=== PATIENT | male | born 1950 | race Caucasian/White ===

== ENCOUNTER 2019-08-09 17:45 | Inpatient (IN) | payer MEDICARE ==
[~2019-08-09] VITALS: Ht 182.8 cm; Wt 86.2 kg
[2019-08-09 19:05] VITALS: BP 111/75
[2019-08-09] MEDS ORDERED: NATURE'S BLEND100 M2 PO (19:28)
[2019-08-09] MEDS ORDERED: TRAZODONE50 MG PO (19:29)
[2019-08-09] MEDS ORDERED: ZYPREXA20 M1 PO (19:30)
[2019-08-09] MEDS ORDERED: EXELON1 EACH T (19:30)
[2019-08-09] MEDS ORDERED: HALOPERIDOL0.5 MG PO (19:31)
[2019-08-09] MEDS ORDERED: NEURONTIN300 MG PO (19:32)
[2019-08-09] MEDS ORDERED: NATURE'S BLEND F1 MG PO (19:32)
[2019-08-09] MEDS ORDERED: LIPITOR10 MG PO (19:32)
[2019-08-09] MEDS ORDERED: PRINIVIL10 MG PO (19:33)
[2019-08-09] MEDS ORDERED: GLUCOPHAGE1000 MG PO (19:34)
[2019-08-09] MEDS ORDERED: PAXIL20 M1 PO (19:35)
[2019-08-09 20:00] VITALS: BP 111/75
--- NOTE | 2019-08-09 20:18 | NUR ---
DR GODOY NOTIFIED OF ADMISSION
[2019-08-09 20:32] VITALS: BP 111/75
--- NOTE | 2019-08-09 20:55 | NUR ---
EVENING/COLOR THERAPY/LEISURE PT JUST ADMITTED TO UNIT AND IS BECOMING ORIENTED AT THIS TIME. ACTIVITY ASSESSMENT WILL BE ATTEMPTED TOMORROW.
--- NOTE | 2019-08-09 21:39 | NUR ---
ON UNIT TO SEE PATIENT AT THIS TIME.
--- NOTE | 2019-08-09 22:31 | NUR ---
PATIENT ALERT AND ORIENTED TO PERSON AND PLACE, CONFUSED. ST/LT MEMORY DEFICITS NOTED. PT STATED THAT HE IS HERE TO SEE A COMPLETIONS MANAGER TO GET A "HEART WORKUP" DESPITE REORIENTATION FROM THIS NURSE. PT POOR HISTORIAN. PT ATTEMPTS TO HIDE CONFUSION WITH SARCASTIC REMARKS OR JOKES. UNDERLYING IRRITABILITY NOTED DURING TIMES OF REALITY PRESENTATION. PT OTHERWISE CALM, COOPERATIVE, AND INTERACTIVE. NO COMPLAINTS OF SI/HI, HALLUCINATIONS, OR PAIN. NO NOTED RESPONDING TO INTERNAL STIMULI. PT DENIES WOUNDS, REFUSES SKIN ASSESSMENT OF GROIN AND BUTTOCKS. NO EXIT SEEKING BEHAVIORS OBSERVED, ELOPEMENT PRECAUTIONS CONTINUED AND MAINTAINED. PT AMBULATORY WITH STEADY GAIT, CONTINENT OF BOWEL AND BLADDER. PT INDEPENDENT WITH ADL'S WITH MINIMAL ASSISTANCE. PT CURRENTLY LAYING DOWN WITH EYES CLOSED. RESPIRATIONS EASY AND REGULAR, NO SIGNS OR SYMPTOMS OF DISTRESS NOTED. PLAN IS TO CONTINUE TO MONITOR MOOD AND BEHAVIORS. PROVIDE 1:1 WITH SUPPORT NEEDED. ENCOURAGE MEDICATION COMPLIANCE AND EDUCATE. MAINTAIN Q 15 MIN CHECKS AND ELOPEMENT PRECAUTIONS.
--- NOTE | 2019-08-10 06:01 | NUR ---
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 NO SIGNS OR SYMPTOMS OF DISTRESS NOTED.
[2019-08-10 07:17] LABS: BASO % 0.4 % (0.0-1.0); EOS # 0.2 10*3/uL (0.0-0.4); EOS % 2.9 % (1.0-4.0); HEMATOCRIT 39.3 % (42.0-52.0); HEMOGLOBIN 13.8 g/dl (14.0-18.0); LYMPH # 1.1 10*3/uL (1.3-4.4); MEAN CELL VOLUME 96.3 fl (80.0-94.0); MEAN CORPUSCULAR HGB 33.8 pg (27.0-31.0); MEAN CORPUSCULAR HGB CONC 35.1 g/dl (33.0-37.0); MEAN PLATELET VOLUME 10.4 fl (9.6-12.3); MONO # 0.5 10*3/uL (0.1-1.0); MONO % 8.5 % (3.0-9.0); NEUT # 3.7 10*3/uL (2.3-7.9); NEUT % 67.8 % (47.0-73.0); PLATELET COUNT AUTOMATED 117 10*3/uL (130-400); RED BLOOD COUNT 4.08 10*6/uL (4.50-5.90); RED CELL DISTRI WIDTH 11.9 % (0-14.5); WHITE BLOOD COUNT 5.5 10*3/uL (4.8-10.8)
[2019-08-10 07:26] LABS: ALBUMIN 3.7 gm/dl (3.1-4.5); ALKALINE PHOSPHATASE 59 U/L (45-117); BUN 11 mg/dl (7-24); CHLORIDE 101 mmol/L (98-107); CHOLESTEROL 186 mg/dL (<200); CREATININE 0.82 mg/dL (0.70-1.30); HDL CHOLESTEROL 32 mg/dl (40-60); LDL CHOLESTEROL 110 mg/dL (9-159); POTASSIUM 4.1 mmol/L (3.5-5.1); SGOT/AST 14 IU/L (3-35); SGPT/ALT 16 U/L (12-78); SODIUM 136 mmol/L (136-145); TOTAL PROTEIN 6.9 gm/dL (6.4-8.2); TRIGLYCERIDES 219 mg/dl (<150); VLDL CHOLESTEROL 44 mg/dL (6-40)
[2019-08-10 07:36] VITALS: BP 131/85
--- NOTE | 2019-08-10 07:49 | NUR ---
Patient resting quietly with no c/o discomfort. Respirations easy and regular. Vital signs stable. No overt distress. GIVENS,NADIA
--- NOTE | 2019-08-10 08:00 | NUR ---
DR. BROWN ON UNIT TO ASSESS PATIENT.
[2019-08-10 08:10] LABS: VITAMIN D, 25-HYDROXY 17.4 ng/mL (30-100)
--- NOTE | 2019-08-10 09:04 | NUR ---
DR. ESQUEDA NOTIFIED OF PATIENT'S AIC OF 9.6.
--- NOTE | 2019-08-10 11:28 | NUR ---
DR ESQUEDA UPDATED ON PT BLOOD SUGAR OF 406. NO NEW ORDERS AT THIS TIME.
--- NOTE | 2019-08-10 11:51 | NUR ---
AM GROUP PT ATTENDED MORNING GROUP THERAPY BUT REFUSES ANY ACTIVITY OFFERED. PT GOT UP AND LEFT THE ROOM SEVERAL TIMES. PT DID LOOK AT THE NEWSPAPER FOR A FEW MINUTES. PT EXHIBITED NO ELOPEMENT BEHAVIORS WHILE IN GROUP
--- NOTE | 2019-08-10 12:24 | NUR ---
PT AT THE NURSES STATION. CONFUSED AT THIS TIME. ARGUMENTATIVE WITH REDIRECTION AND REORIENTATION. REASSURED PT HE WAS SAFE AND HIS DAUGHTER KNOWS WHERE HE IS. EXPLAINED TO THE PT THIS NURSE SPOKE TO HIS DAUGHTER TODAY. PT BECOMING AGITATED.
--- NOTE | 2019-08-10 12:48 | NUR ---
PT COMING TO THE NURSES STATION REQUESTING HIS CAR KEYS SO HE CAN LEAVE. ATTEMPTING TO REORIENT PT AND PT SHOWING SIGNS OF INCREASED AGITATION AND IRRITABILITY. PROVIDING 1:1 FOR THERAPEUTIC COMMUNICATION. ENCOURAGING PT TO ATTEND GROUP. ALL REDIRECTION INEFFECTIVE AT THIS TIME.
--- NOTE | 2019-08-10 12:58 | NUR ---
P: INCREASED CONFUSION, IRRATIBLE, ANGRY, ARGUEMENTATIVE TOWARDS STAFF, EXIT SEEKING, VOICED DELUSIONAL THOUGHTS. TELLING STAFF "I WANT TO LEAVE, I'M NOT IN HOSPITAL, I CAME TO SALVAGE MY CAR, WHERE IS MY CAR AND KEYS, I'M LEAVING" ASKING STAFF FOR DIRECTIONS TO ESCULATOR OR STAIRS, TO LEAVE HOSPITAL. "ARE YOU FROM [place] "CAN YOU CALL MY /" PATIENT IS A . I: ONE ON ONE FOR EMOTIONAL SUPPORT, REORIENTION AND REDIRECTION R: INEFFECTIVE; PATIENT CONITNUES TO COME UP AT THE NURSE STATION REPETATIVE ON LEAVING THE HOSPITAL AND HOW TO GET OUT OF THE BUILDING. PATIENT INCREASINGLY BECOMING MORE AGITATED. PRN ATIVAN 1MG PO AT THIS TIME. PATIENT IS ALERT TO PERSON WITH CONFUSION; LONG/SHORT TERM MEMORY DIFICITS. ABLE TO VOICE NEEDS. MOOD IS IRRITABLE, ANGRY, DEMENDING, ARGUEMENTATIVE. DENIES ANY HALLUCINATIONS, DELUSIONS, HI/SI OR PAIN. 1 PERSON ASSIST WITH VERBAL CUEING WITH ACTIVITIES OF DAILY LIVING, CONTINENT OF BOWEL AND BLADDER. SET UP FOR MEALS, INTAKES ARE FAIR WITH ADEQUATE FLUIDS. MEDICAITON COMPLAINT WITH EDUCATION PROVIDED. Q 15 MINUTE SAFETY CHECKS. PATIENT IS A HIGH ELOPEMENT RISK. P: CONTINUE TO MONITOR PATIENT'S MOOD, EXIT SEEKING AND AGGRESSION. PROVIDE ONE ON ONE FOR EMOTIONAL SUPPORT, REDIRECTION AND ORIENTATION NEEDED.
--- NOTE | 2019-08-10 12:58 | NUR ---
PRN ATIVAN INEFFECTIVE. CONTINUE TO PROVIDE ONE ON ONE, REDIRECTION AND ORIENTATION NEED AND MONITOR MOOD.
--- NOTE | 2019-08-10 13:51 | NUR ---
Spoke with Mattie mann Nurse from [facility] [place]. Pt. will return to facility at discharge. Provided with updates and faxed clinical updates to [phone].
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
--- NOTE | 2019-08-10 15:17 | NUR ---
Patient was restless this afternoon wanting his car keys and demanding to leave. Pt stated that he has two vehicles that are impounded and that he needs to handle the situation. Pt is questioning why he needs to be at the hospital and why he can't leave. Pt is also stating that he did not consent to being admitted to the hospital. Reality and validation methods were used by staff and were ineffective. Pt did finally state that he would wait for the doctor and went to sit in the activity room.
--- NOTE | 2019-08-10 15:44 | NUR ---
PM GROUP PT WAS IN AND OUT OF THE GROUP ROOM AND WAS BECOMING AGITATED AND RESTLESS. PT WAS NOT TOLERATING AN ELDERLY PEER AND LEFT THE ROOM TO ASK HOW TO GET OUT OF THE UNIT OR TO THE GROUND FLOOR. PT COULD NOT BE REDIRECTED AND WENT INTO THE [facility] TO ASK THE NURSES.
--- NOTE | 2019-08-10 16:10 | NUR ---
Shift chart check completed.
--- NOTE | 2019-08-10 16:27 | NUR ---
PATIENT CONTINUES TO ESCULATE; CONFRONTATION WITH STAFF, GOING TO DOORS ATTEMPTING TO OPEN DOORS. FOLLOWING STAFF ON UNIT. ASKING :HOW TO BUST OF OUT HERE?" INCREASED PACING. PRN VISTARIL 50 MG PO GIVEN AT THIS TIME.
--- NOTE | 2019-08-10 17:27 | NUR ---
PRN VISTARIL INEFFECTIVE; PATIENT CONTINUE TO COME UP AT NURSE STATION WITH REPEATIVE CONCERNS WITH WANTING TO LEAVE, GOING DOWN HALLWAY CHECKS DOORS. PATIENT REDIRECTED FREQUENTLY. SECURITY CALLED FOR CHECK UNIT MORE DURING VISITING HOURS DUE TO HIGH ELOPEMENT RISK.
--- NOTE | 2019-08-10 18:57 | NUR ---
attempted to present reality to pt. pt stated fine he would then go on a hunger strike. pt continues to ask to be left out and attempting to push on all doors. will continue to monitor behaviors with q15 minute safety checks
[2019-08-10 20:03] VITALS: BP 148/84
--- NOTE | 2019-08-10 20:30 | NUR ---
P-CONFUSED, IRRITABLE, ARGUMENTATIVE WITH STAFF, EXIT SEEKING. I-REORIENTED TO REALITY WITH REDIRECTION. PROVIDED 1:1 WITH SUPPORT. PROVIDED DIVERSION TECHNIQUES. PROVIDED LOW STIMULI ENVIRONMENT TO HELP CALM. ENCOURAGED MEDICATION COMPLIANCE. R- NON-PHARMACOLOGICAL INTERVENTIONS INEFFECTIVE. INCREASING IRRITABILITY NOTED DURING TIMES OF REDIRECTION. PT STATES "IM LEAVING HERE, GIVE ME MY CAR KEYS AND STUFF NOW. PT FOLLOWING STAFF, INTRUSIVE. PT CONTINUES TO EXIT SEEK, PACING HALLWAY. PT RECEIVED PRN GEODON 10MG IM AT 2021 ORDERED BY PHYSICIAN. PT TOLERATED INJECTION WELL. P-CONTINUE TO MONITOR FOR ESCALATING BEHAVIORS. PROVIDE 1:1 WITH SUPPORT. PROVIDE REORIENTATION. REDIRECT APPROPRIATE. ENCOURAGE MEDICATION COMPLIANCE. MAINTAIN Q 15 MIN CHECKS.
--- NOTE | 2019-08-10 22:00 | NUR ---
PT IN ROOM AND BED RESTING QUIETLY AT THIS TIME. NO AGITATION OR AGGRESSION NOTED. PRN GEODON GIVEN AT 2021 EFFECTIVE AT THIS TIME.
--- NOTE | 2019-08-11 06:39 | NUR ---
PATIENT OBSERVED ON Q 15 MIN CHECKS TO HAVE SLEPT APPROX 7 HOURS UNINTERRUPTED. PT CONTINUES TO REFUSE SKIN ASSESSMENT THIS SHIFT. NO SIGNS OR SYMPTOMS OF DISTRESS NOTED.
[2019-08-11 07:17] VITALS: BP 110/72
--- NOTE | 2019-08-11 08:15 | NUR ---
Treatment Plan meeting was held with Dr. Cruz, RN, AT, GUT CLEANER-S and Lifter Driver in attendance. Plan for discharge next week. Pt. will return to [facility] at discharge.
--- NOTE | 2019-08-11 09:13 | NUR ---
DR BROWN ON UNIT TO ASSESS PT. UPDATE PROVIDED TO
--- NOTE | 2019-08-11 11:45 | NUR ---
AM GROUP/CIELO VUONG PT DID NOT ATTEND MORNING GROUP THERAPY. PT WENT BACK TO BED AFTER BREAKFAST AND WAS SLEEPING DURING GROUP
--- NOTE | 2019-08-11 12:08 | NUR ---
P: CONFUSION. ALERT TO PERSON ONLY. INCREASED IRRITABILITY WITH CONFUSION. I: REORIENT PT NEEDED. PROVIDED 1:1 FOR THERAPEUTIC COMMUNICATION. MONITORED BEHAVIORS WITH Q15 MINUTE SAFETY CHECKS. ENCOURAGED MEDICATION COMPLAINCE. OFFERED NONPHARMACOLOGICAL INTERVENTIONS, SUCH [employer] NEWSPAPER. R:MEDICATION COMPLIANT. PT READ [employer] NEWSPAPER. NO ADVERSE MOODS OR BE HAVIORS NOTED. PT RECEPTIVE TO REDIRECTION AND REORIENTATION. REORIENTATION INEFFECTIVE. P:CONTINUE TO OFFER 1:1 FOR THERAPEUTIC COMMUNICATION. MONITOR BEHAVIORS WITH Q15 MINUTE SAFETY CHECKS. CONTINUE TO OFFER NONPHARMACOLOGICAL INTERVENTIONS FOR REDIRECTION. CONTINUE TO ENCOURAGE MEDICATION COMPLIANCE AND ENCOURAGE ATTENDENCE AND PARTICIPATION IN GROUPS.
--- NOTE | 2019-08-11 13:30 | NUR ---
Occupational therapy orders received and OT evaluation completed in full on floor three. Patient demonstrated independent ADLs, functional mobility, and transfers with good strength, balance, and safety. Patient to be discharged from occupational therapy at this time. [place], [id number]. Thank you for the referral. Carlita Roy, OTR/L
--- NOTE | 2019-08-11 14:06 | NUR ---
UPDATED DR BARRERA ON PHARMACY NOT HAVING GLIPIZIDE IN AND NO AVAILABILITY UNTIL FRIDAY. DR BARRERA STATED HE WOULD LOOK INTO IT.
--- NOTE | 2019-08-11 14:19 | NUR ---
PHYSICAL THERAPY Alley completed low level of [id number]. Pt is independent in transfers and ambulation without any AD, steady gait no gross balance issues. Staff reports no issues or problems with function at this time, no skilled need at this time for Physical Therapy if status changes please reconsult, thank you. Susan Plaza PT
--- NOTE | 2019-08-11 15:39 | NUR ---
Clinical Updates faxed to [facility].
--- NOTE | 2019-08-11 15:51 | NUR ---
PM GROUP/BALL TOSS AND MOVIE PT DID NOT ATTEND AFTERNOON GROUP THERAPY. PT SAT IN QUIET ROOM AND LOOKED AT BOOKS AND MAGAZINES.
--- NOTE | 2019-08-11 17:24 | NUR ---
DR BARRERA UPDATED ABOUT PATIENT BLOOD SUGAR RESULTS. NO NEW ORDERS AT THIS TIME. DOCTORS TO REVIEW MEDICATIONS AND BLOOD SUGAR RESULTS IN THE AM
[2019-08-11 19:11] VITALS: BP 117/73
--- NOTE | 2019-08-11 21:45 | NUR ---
P-CONFUSION, IRRITABLITY I-REDIRECTION WITH 1: THERAPEUTIC INTERVENTIONS AND PRESENT REALITY. EDUCATE AND ENCOURAGE MEDICATION COMPLIANCE R-PATIENT MEDICATION COMPLIANT. PATIENT IRRITABLE WITH MULTIPLE ATTEMPTS TO EXIT SEEK. PATIENT STATING TO THIS NURSE, I JUST CAN' T GET SETTLED. PATIENT MEDICATED WITH VISTARIL WITH EFFECTIVE RESULTS AT THIS TIME. PATIENT PROVIDED NOURISHMENT AND FLUIDS AT HS. PATIENT AMBULATING ON UNIT WITHOUT ASSISTIVE DEVICE AND STEADY GAIT. PATIENT INTERACTING WITH PEERS IN DINING AREA THROUGHOUT THE SHIFT. P-CONTINUE TO ENCOURAGE MEDICATION COMPLIANCE, CONTINUE TO PRESENT REALITY, ENCOURAGE GROUP THERAPY WHILE AWAKE
--- NOTE | 2019-08-11 22:15 | NUR ---
URINE SPECIMEN COLLECTED VIA CLEAN CATCH. URINE DARK YELLOW WITH STRONG ODOR. URINE OUTPUT OF 350ML. PATIENT CONTINENT OF BLADDER PRIOR TO COLLECTING SPECIMEN. PATIENT WITH NO COMPLAINTS OF DYSURIA
[2019-08-11 22:29] LABS: BILIRUBIN NEGATIVE (NEGATIVE); BLOOD NEGATIVE (NEGATIVE); CLARITY CLEAR (CLEAR); COLOR YELLOW (YELLOW); GLUCOSE 3+ (NEGATIVE); KETONE 1+ (NEGATIVE); LEUKO ESTERASE NEGATIVE (NEGATIVE); NITRITE NEGATIVE (NEGATIVE)
[2019-08-11 22:38] LABS: EPITHELIAL CELLS 0-2; WBC 0-2 wbc/hpf (0-5)
--- NOTE | 2019-08-12 06:11 | NUR ---
PATIENT SLEPT 7 HOURS OF INTERRUPTED SLEEP THROUGHOUT SHIFT. Q 15 MINUTE CHECKS MAINTAINED. 24 HR chart check completed.
[2019-08-12 07:26] VITALS: BP 124/72
--- NOTE | 2019-08-12 08:00 | NUR ---
Patient resting quietly with no c/o discomfort. Respirations easy and regular. Vital signs stable. No overt distress. JENNIFER CARRASQUILLO
--- NOTE | 2019-08-12 11:40 | NUR ---
AM GROUP PT WAS IN AND OUT OF GROUP. PT SAT AND WATCHED THE PARADE FOR A LITTLE WHILE, LEFT AND BROUGHT A NATIONAL GEOGRAPHIC BACK IN WITH HIM. PT WAS QUIET AND SAT AT THE BACK OF THE ROOM. PT EXHIBITED NO AGITATION WHILE IN THE DAYROOM
--- NOTE | 2019-08-12 14:40 | NUR ---
PM GROUP/FOOTBALL PT WAS PRESENT FOR AFTERNOON GROUP THERAPY AND WAS WATCHING FOOTBALL. PT WOULD GET UP OCCATIONALLY AND ASKED, "CAN I PUT MY JEANS ON IF I CAN FIND THEM IN MY ROOM"? AND PT STATED, "I DIDN'T HAVE ANY LUNCH" WHEN [facility] REPORTED THAT HE HAD EATEN ALL OF HIS LUNCH. PT DID NOT ATTEMPT TO EXIT SEEK OR EXHIBIT ANY AGITATION WHILE IN GROUP
--- NOTE | 2019-08-12 15:09 | NUR ---
PT CONFUSED, WANDERING HALLS, EASILY DISTRACTIBLE. PT REDIRECTED TO TASK AND REORIENTED. PT STATES "I MEAN, IT'S NOT A BAD THING TO FORGET. WHO CARES?". PT IS RECEPTIVE TO REORIENTATION AND REDIRECTION, HOWEVER, ONLY LASTS A SMALL AMOUNT OF TIME AND PT REQUIRES FURTHER REORIENTATION. WILL CONTINUE TO REORIENT AND PROVIDE EMOTIONAL SUPPORT APPROPRIATE. WILL ENCOURAGE MEDICATION COMPLIANCE. Q15 MIN MONITORING PER POLICY.
--- NOTE | 2019-08-12 17:46 | NUR ---
PT BEGINNING TO BECOME INCREASINGLY RESTLESS AND AGITATED. STATES THAT HE IS CALLING [employer] AND LEAVING TOMORROW. PT STATES HE IS LEAVING NO MATTER WHAT, HE IS NOT A PATIENT HERE. PT PACING HALLS AND BECOMING MORE AGITATED. PT REDIRECTED, PROVIDED WITH MUCH 1:1 AND DECREASED STIMULATION. ALL NONPHARMACOLOGICAL INTERVENTIONS INEFFECTIVE AT THIS TIME. VISTARIL 50MG GIVEN PER PRN ORDER FOR INCREASED ANXIETY AND AGITATION.
[2019-08-12 20:00] VITALS: BP 145/69
--- NOTE | 2019-08-12 21:34 | NUR ---
P-CONFUSION, IRRITABLE, MEDICATION NONCOMPLIANCE I-REDIRECTION WITH 1: THERAPEUTIC INTERVENTIONS AND PRESENT REALITY. EDUCATE AND ENCOURAGE MEDICATION COMPLIANCE R-PATIENT REFUSED ALL MEDICATION AT HS. PATIENT IRRITABLE WITH NURSING STAFF WHEN FOUND IN ANOTHER PATIENTS BED. PATIENT REDIRECTED TO HIS ROOM BUT UPSET ABOUT GOING TO HIS ROOM. PATIENT PROVIDED NOURISHMENT AND FLUIDS AT HS. PATIENT AMBULATING ON UNIT WITHOUT ASSISTIVE DEVICE AND STEADY GAIT. P-CONTINUE TO ENCOURAGE MEDICATION COMPLIANCE, CONTINUE TO PRESENT REALITY, ENCOURAGE GROUP THERAPY WHILE AWAKE
--- NOTE | 2019-08-12 23:16 | NUR ---
REAPPROACHED PATIENT WITH HS MEDICATIONS. PATIENT RECEIVED MEDICATION BY OTHER NURSE ON UNIT. PATIENT ARGUMENTATIVE BUT DID COMPLY WITH MEDICATION ADMINISTRATION AND RECEIVED INSULIN AT THIS TIME
--- NOTE | 2019-08-13 06:12 | NUR ---
PATIENT SLEPT 6 HOURS OF INTERRUPTED SLEEP THROUGHOUT SHIFT. Q 15 MINUTE CHECKS MAINTAINED. 24 HR chart check completed.
[2019-08-13 07:57] VITALS: BP 135/66
--- NOTE | 2019-08-13 08:05 | NUR ---
Patient sitting quietly with no c/o discomfort. Respirations easy and regular. Vital signs stable. No overt distress. ANNE MALIK
--- NOTE | 2019-08-13 11:37 | NUR ---
AM GROUP/WATERCOLORS PT WAS PRESENT FOR MORNING GROUP THERAPY BUT DID NOT PARTICIPATE IN THE PAINTING. PT SAT AT THE BACK OF THE ROOM QUIETLY UNTIL A PEER BECAME COMBATIVE AND EXIT SEEKING. PT BECAME AGITATED AND ASK PEER TO BE QUIET. PT OCCATIONALLY WAS GETTING UP AND LOOKING FOR HIS SHOES BUT WAS EASILY REDIRECTED.
--- NOTE | 2019-08-13 15:42 | NUR ---
PM GROUP/LEISURE INTERESTS PT ATTENDED AFTERNOON GROUP THERAPY AND PARTICIPATED FOR A SHORT TIME BY PLAYING CHECKERS WITH A PEER. PT BEGAN TO AT 2PM AND WAS EXIT SEEKING AND GETTING MORE AND MORE AGITATED. PT COULD ONLY BE REDIRECTED BECAUSE HE HAD AN ANSWER FOR EVERYTHING AND THAT WOULD STALL HIM FOR A MINUTE OR TWO CORRECTING YOU. PT REPEATEDLY ASKED THIS HARVEST WORKER TO TAKE HIM DOWN TO THE FIRST FLOOR AND GET HIS CAR.
[2019-08-13 20:00] VITALS: BP 126/69
--- NOTE | 2019-08-13 21:49 | NUR ---
P-CONFUSION, IRRITABLE, ELOPEMENT RISK I-PROVIDE EMOTIONAL SUPPORT, ASSESS ORIENTATION, REORIENT & REDIRECT FREQUENTLY. ADMINISTER MEDS, MONITOR SLEEP, MAINTAIN ELOPEMENT PRECAUTIONS. R-PT INDEPENDENTLY AMBULATES, ALERT TO SELF ONLY. HAS BEEN REORIENTED TO PLACE SEVERAL TIMES BUT HAS NO RECALL. SHORT & LONG MEMORY DEFICITS VERY EVIDENT. CONFUSED & FREQUENTLY ASKS STAFF QUESTIONS & WHEN ANSWERED BECOMES IRRITABLE. WANDERS AROUND ON THE UNIT FREQUENTLY & WALKS TO UNIT DOOR. DID ASK WHY HE CANT LEAVE THE UNIT. STATED HE JUST CAME HERE AN HOUR AGO. ATE SNACK. HS BEDSIDE GLUCOSE 259. COMPLIANT WITH MEDICATIONS. P-CONTINUE TO MONITOR & PROVIDE PHYSICAL & EMOTIONAL SUPPORT NEEDED.
--- NOTE | 2019-08-14 00:05 | NUR ---
24 HR chart check completed.
--- NOTE | 2019-08-14 05:06 | NUR ---
PT HAS SLEPT QUIETLY PAST 2129
--- NOTE | 2019-08-14 06:50 | NUR ---
AM BEDSIDE GLUCOSE 230
[2019-08-14 07:46] VITALS: BP 116/71
--- NOTE | 2019-08-14 08:00 | NUR ---
Patient resting quietly with no c/o discomfort. Respirations easy and regular. Vital signs stable. No overt distress. JENNIFER CARRASQUILLO
--- NOTE | 2019-08-14 11:56 | NUR ---
AM GROUP/EXERCISES/BALL TOSS PT ATTENDED AND PARTICIPATED. PT PLEASANT AND ON TASK WITH NO LABILE MOOD EXPRESSED. PT DID NOT BECOME AGITATED OR AGGRESSIVE AT THIS TIME. PT WILL CONTINUE TO ATTEND AND PARTICIPATE IN FUTURE GROUP SESSIONS.
--- NOTE | 2019-08-14 12:32 | NUR ---
PT CONFUSED, WANDERING HALLS, DISTRACTIBLE. PT REDIRECTED TO TASK AND REORIENTED. PT IS RECEPTIVE TO REORIENTATION AND REDIRECTION, HOWEVER, ONLY LASTS A SMALL AMOUNT OF TIME AND PT REQUIRES FURTHER REORIENTATION. WILL CONTINUE TO REORIENT AND PROVIDE EMOTIONAL SUPPORT APPROPRIATE. WILL ENCOURAGE MEDICATION COMPLIANCE. Q15 MIN MONITORING PER POLICY.
--- NOTE | 2019-08-14 15:41 | NUR ---
PM GROUP/LEISURE SKILLS PT BEGAN GROUP BY FOCUSING ON FOOTBALL GAME, BUT SOON BEGAN SEARCHING FOR HIS SHOES AND CLOTHES. PT BECOMING FRUSTRATED DUE TO NOT FINDING CLOTHES BUT STAFF ARE CONSATTNLY REDIRECTING PT. PT UNABLE TO FOCUS ON ACTIVITY AT THIS TIME AND WILL CONTINUE TO BE ENOCURAGED TO ATTEND AND PARTICIPATE IN FUTURE GROUP SESSIONS.
--- NOTE | 2019-08-14 17:13 | NUR ---
PT ASKING TO CALL HIS SPOUSE () SEVERAL TIMES, PT BECOMES UPSET WHEN STAFF REDIRECTS HIM FROM THE PHONE CALL. PT IS CONCERNED THAT HE IS SUPPOSED TO BE LEAVING "THIS JOB SITE" AND WILL BE UPSET AT HIM FOR NOT COMING HOME. PT TOLD SEVERAL TIMES SHE IS AWARE HE IS HERE. OFFERED TO CALL HIS DAUGHTER JOSE ALBERTO, HE DOES NOT RECALL HER VISITING TODAY, HE ALSO DOES NOT RECALL THAT HIS HAS PASSED. AT THIS TIME ATTEMPTING TO REORIENT WOULD INCREASE AGITATION. PT CONTINUES TO PASS THE HALLWAY. ST/LT MEMORY IS IMPAIRED. CONTINUE TO REDIRECT HIM NEEDED
[2019-08-14 19:45] VITALS: BP 117/70
--- NOTE | 2019-08-14 19:52 | NUR ---
24 HR chart check completed.
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
--- NOTE | 2019-08-15 06:11 | NUR ---
PT HAS SLEPT PAST 2144
--- NOTE | 2019-08-15 06:40 | NUR ---
AM BEDSIDE GLUCOSE 190
[2019-08-15 07:39] VITALS: BP 124/72
--- NOTE | 2019-08-15 08:06 | NUR ---
Patient resting quietly with no c/o discomfort. Respirations easy and regular. Vital signs stable. No overt distress. JENNIFER CARRASQUILLO
--- NOTE | 2019-08-15 12:00 | NUR ---
PT REMAINS, RESTLESS, WANDERING, PACING HALLWAYS, PT SAT IN CHAIR IN HALLWAY TO TALK TO "FLIGHT MANAGEMENT, ABOUT FLIGHT TO [facility] MACKAY" FREQUENTLY BECOMES AGITATED THAT HE IS NOT ABLE TO LEAVE FREELY, STATING WE ARE CLUELESS. HE DID TALK TO DAUGHTER TODAY WHO ATTEMPTED TO ORIENT HIM TO STAY AT HOSPITAL IN ATTEMPT TO DECREASE REPEATATIVE BEHAVIOR. CONTINUE TO MONITOR
[2019-08-15 20:03] VITALS: BP 126/65
--- NOTE | 2019-08-15 23:37 | NUR ---
P-CONFUSION, ST/LT MEMORY DEFICITS. PT STATES HE IS AT A FACILITY CHECKING OUT INVENTORY AND SHOPPING. I-PROVIDE 1:1 FOR VENTILATION OF FEELINGS. PROVIDE SUPPORT NEEDED. ASSESS ORIENTATION. PRESENT REALITY AND REORIENT NEEDED. ENCOURAGE MEDICATION COMPLIANCE AND EDUCATE. MONITOR SLEEP. R- PATIENT ALERT TO SELF, CONFUSED. PT UNRECEPTIVE TO REALITY PRESENTATION AND REMAINS PREOCCUPIED THAT HE CHECKING OUT INVENTORY STATING "I WANT THE GLITZ MODEL, THATS AN INTERESTING PIECE". UNDERLYING IRRITABILITY NOTED DURING TIMES OF REDIRECTION. PT MEDICATION COMPLIANT WITHOUT DIFFICULTY, UNABLE TO EDUCATE DUE TO COGNITION. PT DENIES SI/HI, HALLUCINATIONS OR PAIN. NO NOTED RESPONDING TO INTERNAL STIMULI, PARANOIA, OR DELUSIONS. NO PHYSICAL COMPLAINTS VOICED. PT GAIT UNSTEADY, X2 ASSIST. PT'S ROOM MOVED CLOSER TO NURSES STATION DUE TO LACK OF SAFETY AWARENESS, FALL PRECAUTIONS MAINTAINED. PT CONTINENT OF BOWEL AND BLADDER. ALL NEEDS ANTICIPATED BY STAFF. ATE HS SNACK. PT RESTING QUIETLY AT THIS TIME WITH EYES CLOSED, RESPIRATIONS EASY AND REGULAR, NO SIGNS OR SYMPTOMS OF DISTRESS NOTED. P-CONTINUE TO MONITOR MOOD AND BEHAVIORS. PRESENT REALITY AND REDIRECT NEEDED. PROVIDE 1:1 WITH THERAPEUTIC INTERVENTIONS. ENCOURAGE MEDICATION COMPLIANCE. MAINTAIN Q 15 MIN CHECKS.
--- NOTE | 2019-08-16 04:42 | NUR ---
24 HOUR CHART CHECK COMPLETED.
--- NOTE | 2019-08-16 05:40 | NUR ---
PATIENT OBSERVED ON Q 15 MIN CHECKS TO HAVE SLEPT THROUGHOUT THE NIGHT WITH NO AWAKENINGS OR SIGNS AND SYMPTOMS OF DISTRESS NOTED.
--- NOTE | 2019-08-16 06:58 | NUR ---
FREDRICK FALK [id number] Please refer to the physician's history and physical for past medical history, comorbid conditions, and allergies. Diagnosis: INTERMITTENT EXPLOSIVE DISORDER,PSYCHOTIC DISORDER Robert Score: 21,LOW OR NO RISK WOUND DESCRIPTIONS: New skin impairment Wound Number: 1 Location of the wound: left lateral foot Type of wound: unstageable Thickness: Full Size: 1.6cm x 1.6cm x <0.1cm Tunneling: none Undermining: none Sinus Tract: none Presence of Exudate: none Amount: None Color: Brown Odor: None Periwound Skin Appearance: Normal Wound edges: approximated Pain (associated with wound): none at time of assessment How does patient state this happened? pt unable to state how this happened Surface the patient is resting on: Proform SKIN PREVENTION RECOMMENDATION: 1. Pressure redistribution support surface as appropriate 2. Elevate heels 3. Remove boots/TEDS every shift and reapply 4. Head of bed 30 degrees as tolerated 5. Assess nutrition and hydration 6. Manage moisture 7. Avoid the use of containment devices while in bed 8. Use absorptive products on surfaces limit layers of linens on bed 9. Turn and reposition every 1-2 hours in bed and every 1 hour in chair as tolerated 10. Weight shifts every 15 minutes while up in chair 11. Offloading with pillows or device to keep heels elevated off bed 12. Monitor skin at least every shift 13. Inspect under medical devices twice a day WOUND TREATMENT RECOMMENDATIONS: Consult podiatry for area to left lateral foot. Venous and arterial studies to left lateral foot due to wound. Apply betadine to left lateral foot and cover with dsd daily and prn for soiling. Heel raiser pro boots to bilateral feet.
--- NOTE | 2019-08-16 07:07 | NUR ---
PATIENT INCONTINENT IN BED, PT ASSISTED TO SHOWER BY TWO STAFF. PT SHOWERED WITHOUT DIFFICULTY, SKIN AREA OBSERVED ON LEFT LATERAL FOOT, BROWN DISCOLORATION NOTED, NO PAIN OR REDNESS WITH SITE. MEASUREMENTS 1.6 X 1.6 X <0.1. WOUND CARE NURSE ON FLOOR AND NOTIFIED. AND TRAINING AND DEVELOPMENT HEAD ALSO NOTIFIED AT THIS TIME. PT ALERT TO SELF, CONFUSED AND HAS BEEN REFUSING SKIN ASSESSMENTS PREVIOUSLY BY THIS NURSE.
--- NOTE | 2019-08-16 07:49 | NUR ---
GUARDIAN CALLED WITH NO ANSWER AT THIS TIME, DAY SHIFT UPDATED.
[2019-08-16 08:37] VITALS: BP 144/71
--- NOTE | 2019-08-16 08:55 | NUR ---
DR. GALLEGO ON UNIT TO ASSESS PATIENT.
--- NOTE | 2019-08-16 09:40 | NUR ---
Dr. Ribera notified of wound care recommendations.
--- NOTE | 2019-08-16 14:55 | NUR ---
DR HODGE ON UNIT TO ASSESS PATIENT'S LEFT FOOT
--- NOTE | 2019-08-16 14:55 | NUR ---
PATIENT RETURNED TO UNIT FROM ARTERIAL AND VENOUS ULTRA SOUND. DR HODGE ON UNIT TO ASSESS PATIENT'S FOOT. PATIENT PROVIDED A DRESSING FOR PROTECTION AND HEEL PROTECTORS PROVIDED. BONY, BUNION AREA RIGHT FOOT. PATIENT WITH AREA TO LEFT LATERAL FOOT ALSO NOTED
--- NOTE | 2019-08-16 15:19 | NUR ---
PATIENT OFF UNIT TO HAVE ARTERIAL AND VENOUS ULTRASOUND DONE. PATIENT ESCORTED BY MENTAL HEALTH WORKER AND SECURITY FROM UNIT
--- NOTE | 2019-08-16 16:28 | NUR ---
DR OJEDA CALLED AND UPDATED WITH LAB RESULTS. NO NEW ORDERS RECEIVED AT THIS TIME
--- NOTE | 2019-08-16 18:00 | NUR ---
DR OJEDA ON UNIT AND UPDATED ABOUT SECOND LACTIC ACID RESULT
[2019-08-16 20:00] VITALS: BP 132/70
--- NOTE | 2019-08-16 20:32 | NUR ---
EVENING/MOVIE PT SLEEPING ENTIRE GROUP. PT WILL CONTINUE TO BE ENCOURAGED TO ATTEND AN DPARTICIPATE IN FUTURE GROUP SESSIONS TO BEST OF PT ABILITY.
--- NOTE | 2019-08-16 21:02 | NUR ---
NOTIFIED DR GODOY OF 3rd LACTIC ACID OF 2.4
--- NOTE | 2019-08-16 22:28 | NUR ---
P-CONFUSION I-ASSESS ORIENTATION, REORIENT AND REDIRECT NEEDED. PROVIDE 1:1 WITH THERAPEUTIC INTERVENTIONS. PROVIDE SUPPORT NEEDED. ENCOURAGE MEDICATION COMPLIANCE AND EDUCATE. MONITOR SLEEP. R- PT SOMNOLENT THIS SHIFT, ALERT TO SELF, CONFUSED IN ALL OTHER AREAS. PT RESPONDS TO VERBAL CUES DURING INTERACTIONS BUT IS UNABLE TO FOLLOW SIMPLE COMMANDS PRESENTED BY STAFF. PT UNABLE TO AMBULATE INDEPENDENTLY DUE TO UNSTEADY GAIT, MOBILIZES SELF USING A WHEELCHAIR. X2 STAFF REQUIRED FOR ADL'S, ALL NEEDS ANTICIPATED BY STAFF. PT MEDICATION COMPLIANT WITHOUT DIFFICULTY, UNABLE TO PROVIDE EDUCATION DUE TO COGNITION. PT VOICES NO SI/HI, HALLUCINATIONS, OR DELUSIONS. NO PHYSICAL COMPLAINTS VOICED. HEEL PROTECTORS IN PLACE. P-CONTINUE TO MONTIOR MOOD AND BEHAVIORS. PROVIDE 1:1 WITH SUPPORT NEEDED. PRESENT REALITY AND REDIRECT. ENCOURAGE MEDICATION COMPLIANCE AND EDUCATE. MAINTAIN Q 15 MIN CHECKS AND ELOPEMENT PRECAUTIONS.
--- NOTE | 2019-08-16 23:29 | NUR ---
DR. GODOY UPDATED ON RECENT LACTIC ACID RESULT OF 2.5, NO NEW ORDERS RECEIVED.
--- NOTE | 2019-08-17 04:57 | NUR ---
Upon discharge recommend patient to follow up for wound care in outpatient setting continue current wound care orders at discharging facility.
--- NOTE | 2019-08-17 05:49 | NUR ---
24 HOUR CHART CHECK COMPLETED.
--- NOTE | 2019-08-17 06:08 | NUR ---
PATIENT OBSERVED ON Q 15 MIN CHECKS TO HAVE SLEPT APPROX 8 HOURS THROUGHOUT THE SHIFT WITH NO AWAKENINGS OR SIGNS AND SYMPTOMS OF DISTRESS NOTED.
[2019-08-17 07:02] LABS: BASO % 0.3 % (0.0-1.0); EOS # 0.1 10*3/uL (0.0-0.4); EOS % 1.1 % (1.0-4.0); HEMATOCRIT 38.1 % (42.0-52.0); LYMPH # 0.9 10*3/uL (1.3-4.4); LYMPH % 12.4 % (27.0-41.0); MEAN CELL VOLUME 96.5 fl (80.0-94.0); MEAN CORPUSCULAR HGB 32.9 pg (27.0-31.0); MEAN CORPUSCULAR HGB CONC 34.1 g/dl (33.0-37.0); MEAN PLATELET VOLUME 9.9 fl (9.6-12.3); MONO # 0.8 10*3/uL (0.1-1.0); MONO % 11.4 % (3.0-9.0); NEUT # 5.2 10*3/uL (2.3-7.9); NEUT % 74.5 % (47.0-73.0); PLATELET COUNT AUTOMATED 131 10*3/uL (130-400); RED BLOOD COUNT 3.95 10*6/uL (4.50-5.90); RED CELL DISTRI WIDTH 11.8 % (0-14.5)
[2019-08-17 07:23] LABS: ALBUMIN 3.4 gm/dl (3.1-4.5); ALKALINE PHOSPHATASE 53 U/L (45-117); BUN 11 mg/dl (7-24); CHLORIDE 102 mmol/L (98-107); CREATININE 0.63 mg/dL (0.70-1.30); POTASSIUM 3.4 mmol/L (3.5-5.1); SGOT/AST 12 IU/L (3-35); SGPT/ALT 15 U/L (12-78); SODIUM 138 mmol/L (136-145); TOTAL PROTEIN 6.7 gm/dL (6.4-8.2)
[2019-08-17 08:00] VITALS: BP 130/66
--- NOTE | 2019-08-17 08:15 | NUR ---
Treatment Plan meeting was held this a.m. with Dr. Cruz, RN, AT, PEANUT BUTTER MAKER-S and Toll Operator. Plan for discharge Friday with Possible Friday discharge. Pt. will return to [facility].
--- NOTE | 2019-08-17 09:11 | NUR ---
Spoke with Dr. Ross regarding wound care recommendations she stated it was ok to put them in.
--- NOTE | 2019-08-17 10:39 | NUR ---
Received Call from Romeo moon Nurse at [facility]. Per Updates that were faxed to facility 08/16/19 with wound Care Recommendations the facility would like to Come to Onsite Assess the wounds themselves tommorow to determine care Plan at facility. Advised Nursing Staff and Flute Teacher Albert that a Nurse From [facility] would be here tommorow to see patient.
--- NOTE | 2019-08-17 10:46 | NUR ---
DR HUFFMAN AND TEAM ON UNIT TO SEE PATIENT
--- NOTE | 2019-08-17 11:41 | NUR ---
AM GROUP PT DID NOT ATTEND MORNING GROUP THERAPY. PT WAS IN BED RESTING.
--- NOTE | 2019-08-17 14:17 | NUR ---
P-CONFUSION, MEDICATION NONCOMPLIANCE I-REDIRECTION WITH 1: THERAPEUTIC INTERVENTIONS AND PRESENT REALITY. EDUCATE AND ENCOURAGE MEDICATION COMPLIANCE R-PATIENT REFUSED ALL MEDICATION AT 1300 BUT DID RECEIVED MEDICATIONS THIS AM. PATIENT AMBULATING ON IN ROOM WITHOUT ASSISTIVE DEVICE AND UNSTEADY GAIT. PATIENT ISOLATIVE IN DINING ROOM WITH PEERS. PATIENT DRESSING CHANGE TO LEFT FOOT AND TOLERATED WITHOUT DIFFICULTY. PATIENT NEEDING ASSISTANCE WITH TOILETING THIS SHIFT AND INCONTINENT AT THIS TIME P-CONTINUE TO ENCOURAGE MEDICATION COMPLIANCE, CONTINUE TO PRESENT REALITY, ENCOURAGE GROUP THERAPY WHILE AWAKE
--- NOTE | 2019-08-17 18:04 | NUR ---
Shift chart check completed.
[2019-08-17 20:00] VITALS: BP 147/76
--- NOTE | 2019-08-17 20:40 | NUR ---
EVENING/MUSIC/HYMNS PT ATTENDED BUT CHOSE NOT TO PARTICIPATE. PT SLEEPING ENTIRE GROUP. PT WILL OCNTINUE TO BE ENCOURAGED TO ATTEND AND PARTICIPATE TO BEST OF PT ABILITY.
--- NOTE | 2019-08-17 22:42 | NUR ---
Patient alert to self only with confusion noted. Patient drowsy this evening while sitting in diningroom with other patients. Memory deficits noted. No signs of any hallucinations noted at this time. Patient compliant with medications with some encouragement. Provided emotional support. Redirected/reoriented when needed/appropriate. Plan to continue to encourage medication compliance and provide emotional support. Also continue to redirect/reorient when needed/appropriate. Continue to monitor moods and behaviors. Q 15 minute safety checks continued and maintained. See [facility] flowsheet for further documentation.
--- NOTE | 2019-08-18 00:13 | NUR ---
24 HR chart check completed.
--- NOTE | 2019-08-18 05:46 | NUR ---
Patient slept approx. 6 hours throughout shift. Q 15 minute safety checks continued and maintained.
[2019-08-18 07:39] VITALS: BP 129/61
--- NOTE | 2019-08-18 08:08 | NUR ---
PT AWAKE AND ALERT. RESPS EASY AND EVEN ON ROOM AIR. FEEDING SELF BREAKFAST IN DINING ROOM WITH PEERS. NO DISTRESS NOTED. ON UNIT TO SEE PT AT THIS TIME, UPDATE GIVEN.
--- NOTE | 2019-08-18 08:15 | NUR ---
Treatment Plan meeting was held with Dr. Cruz, RN, AT, DOCUMENTATION IMPROVEMENT SPECIALIST-S and Navigation Officer in attendance. Plan for discharge next week. Pt. will return to [facility] assisted Living.
--- NOTE | 2019-08-18 08:34 | NUR ---
PT/OT CONSULTS REORDERED AT THIS TIME PER D/T PT CHANGE IN AMBULATION STATUS.
--- NOTE | 2019-08-18 10:40 | NUR ---
ON UNIT TO SEE PT AT THIS TIME.
--- NOTE | 2019-08-18 12:51 | NUR ---
AM GROUP PT WAS PRESENT FOR MORNING GROUP THERAPY RECLINED IN A VI CHAIR SLEEPING. PT BEGAN TO STIR AND ATTEMPTING TO GET UP. PT WAS PUT IN A SEATED POSITION AND WAS DISTRACTABLE WITH CONVERSATION. PT WAS NONSENSICAL AND BEGINNING TO GET AGITATED AT A PEERS SOMATIC COMPLAINTS. PT EXHIBITED NO AGGRESSIVE OR EXIT SEEKING BEHAVIORS WHILE IN GROUP
--- NOTE | 2019-08-18 13:08 | NUR ---
Received Call from Juan Director of [facility]. Per Updates faxed today Assisted Living is unable to take Patient with Unstageable Wounds.Juan states that "Patient had no wounds when he left the Assisted Living Center. He receives Daily showers and Skin Assessment at The assisted Living Facility". Juan states that they are only able to accept Stage 2 or Below. Pt. would require alternate placement at a Alf Facility. Juan Also expressed concerns about "Patient not ambulating and in a wheelchair or Elma Chair throughout Documentation" "Pt. was never in a chair" "When Patient Left My facility he was ambulating and Actually was sent to [place] because he was continuously exit seeking". "Patient was very active". Informed [facility] Power Saw Operator of the concerns expressed by the Facility and that patient will not be able to return to the Assisted Living Facility at discharge with an unstagable wound and not ambulating. Pt. was able to assist with his own care prior to Admit. Pt. has a Guardian who will need notified. Will Follow will need notified of this.
--- NOTE | 2019-08-18 13:30 | NUR ---
Faxed Additional Documentation from Podiatry to [facility].
--- NOTE | 2019-08-18 14:06 | NUR ---
CALL PLACED TO PT'S LEGAL GUARDIAN ABDIEL DIMAS RE: WOUND TO LEFT FOOT. NO ANSWER AT THIS TIME. MESSAGE LEFT REQUESTING RETURN CALL. FLEET MAINTENANCE FOREMAN NOTIFIED.
--- NOTE | 2019-08-18 15:17 | NUR ---
P- CONFUSION. POOR ST/LT MEMORY. NAPPING INTERMITTENTLY T/O SHIFT. EASILY AROUSABLE VIA VERBAL/TACTILE STIMULI. SPIT OUT 1300 MEDICATIONS. SPEECH NONSENSICAL AT TIMES. NO AGGRESSIVE BEHAVIORS DISPLAYED THIS SHIFT. I- ORIENTATION, MOOD AND BEHAVIORS ASSESSED. ASSESSED PT FOR SI/HI, INTENT OR PLAN. ASSESSED PT FOR S/S HALLUCINATIONS, PARANOIA AND/OR DELUSIONS. MEDICATIONS ADMINISTERED PER PHYSICIAN'S ORDERS. ASSISTANCE WITH ADL CARE PROVIDED. ENCOURAGED PT TO ATTEND AND PARTICIPATE IN [facility] GROUPS AND ACTIVITIES. R- PT IS ALERT TO SELF ONLY, CONFUSED IN ALL OTHER AREAS. PT STATES IT IS 1980, STATES "OH HELL, I DON'T KNOW WHERE I AM". PT STATES THE PRESIDENT IS "ELMORE". MOOD APPEARS DEPRESSED WITH FLAT AFFECT. SPEECH IS SOFT, ABLE TO ANSWER SIMPLE QUESTIONS, NONSENSICAL AT TIMES. PT DENIES SI/HI, INTENT OR PLAN. PT DENIES HALLUCINATIONS, NO RESPONSE TO INTERNAL STIMULI NOTED. NO PARANOIA OR DELUSIONS NOTED. PT MEDICATION COMPLIANT THIS AM. SPIT OUT 1300 MEDICATIONS. NO AGGRESSIVE BEHAVIORS DISPLAYED THIS SHIFT. PT NAPPING INTERMITTENTLY T/O SHIFT, EASILY AROUSABLE VIA VERBAL/TACTILE STIMULI. NO DISTRESS NOTED. P- PLAN TO CONTINUE CURRENT TREATMENT, CONTINUE TO MONITOR MOOD AND BEHAVIORS, PROVIDE APPROPRIATE REORIENTATION, REDIRECTION AND 1:1 NEEDED. CONTINUE TO ENCOURAGE MEDICATION COMPLIANCE WELL GROUP ATTENDANCE AND PARTICIPATION.
--- NOTE | 2019-08-18 15:58 | NUR ---
PM GROUP PT WAS PRESENT FOR AFTERNOON GROUP THERAPY RECLINED IN A VI CHAIR SLEEPING. PT AWOKE A FEW TIMES, SPOKE AND WENT BACK TO SLEEP
[2019-08-18 19:59] VITALS: BP 119/61
--- NOTE | 2019-08-18 22:15 | NUR ---
Patient alert to self only with confusion noted. Patient more alert this evening while sitting in diningroom with other patients. Memory deficits noted. No signs of any hallucinations noted at this time. Patient compliant with HS medications with some encouragement. Provided emotional support. Redirected/reoriented when needed/appropriate. Plan to continue to encourage medication compliance and provide emotional support. Also continue to redirect/reorient when needed/appropriate. Continue to monitor moods and behaviors. Q 15 minute safety checks continued and maintained. See [facility] flowsheet for further documentation.
--- NOTE | 2019-08-19 05:53 | NUR ---
Patient slept approx. 8 hours throughout shift. Q 15 minute safety checks continued and maintained.
[2019-08-19 07:34] VITALS: BP 127/67
--- NOTE | 2019-08-19 07:37 | NUR ---
Patient resting quietly with no c/o discomfort. Respirations easy and regular. Vital signs stable. No overt distress. GIVENS,NADIA
--- NOTE | 2019-08-19 08:15 | NUR ---
PHYSICAL THERAPY New orders received for therapy due to decline in status pt at breakfast very lethargic will see later in the AM if pt able to participate in therapy Susan Plaza PT
--- NOTE | 2019-08-19 08:15 | NUR ---
Patient not appropriate for Occupational Therapy at this time. He is lethargic with head on table after breakfast. Nursing reports that patient was transferred by Yoon lift last night and that this morning, he was able to feed self a few bites and nursing assisted also. OTR will attempt at a later time. Donna Chou OTr/alonzo
--- NOTE | 2019-08-19 09:30 | NUR ---
Notified Discharge Team in Hospital Discharge Meeting that patient cannot return to Assisted Living with an Unstageable Wound, Also spoke with Dr. Cruz and His Resident which is also a Podiatry Resident with these Concerns. Marito the Resident was going to Call Podiatry Resident Staci to inform her that patient could possibly return if actual wound base is a Stage 2 or less. Facility reccomended debridement to visualize wound.
--- NOTE | 2019-08-19 09:31 | NUR ---
P: INCREASED CONFUSION. ALERT TO PERSON ONLY I: BEHAVIORS MONITORED WITH Q15 MINUTE SAFETY CHECKS. 1:1 PROVIDED FOR THERAPEUTIC COMMUNICATION. MEDICATIONS PROVIDED. UNABLE TO EDUCATE ON MEDICATIONS DUE TO COGNITIVE IMPAIRMENT. ATTEMPTED TO REORIENT PT. R: MEDICATION COMPLIANT. 1:1 PROVIDED DUE TO PT ATTEMPTING TO STAND UP OUT OF CHAIR. CONTINUES TO BE CONFUSED. PT STATED HE IS AT A [facility]. UNABLE TO REORIENT PT AT THIS TIME. P: CONTINUE TO PROVIDE 1:1 FOR THERAPEUTIC COMMUNICATION. MONITOR BEHAVIORS WITH Q15 MINUTE SAFETY CHECKS. ENCOURAGE MEDICATION COMPLIANCE. EDUCATE ON MEDICATION WHEN APPROPRIATE. CONTINUE TO REORIENT PT WHEN NEEDED. SEE [facility] FLOWSHEET FOR SPECIFIC MONITORING. WOUND CARE COMPLETED TO LEFT LATERAL FOOT. DRESSING AND SKIN INTACT, CONTINUE TO CHANGE DRESSING DAILY AND NEEDED.
--- NOTE | 2019-08-19 09:45 | NUR ---
Treatment Plan meeting was held with Dr. Cruz, RN, AT, CUP TRIMMING MACHINE OPERATOR-S and Hogshead Mat Assembler in attendance. Plan for discharge Next week. Awaiting Direction from Podiatry and Wound Care. Pt. cannot return to Assisted living with an unstageable Wound.
--- NOTE | 2019-08-19 10:15 | NUR ---
Occupational Therapy evaluation completed on 3 with full eval to follow. Precautions include fall risk, 3n unit precautions,impaired cognition,+2 transfer assist,inconsistant ADL performance, high complexity level [id number] via chart reveiw, testing and evaluation. Recommend OT per POC and SNF upon d/c. Thank you for this referral. Osman Chou OTR/l
--- NOTE | 2019-08-19 10:52 | NUR ---
DR HUFFMAN UPDATED ON PT CONDITION. PT EVALUATED BY PT/OT AND IT WAS NOTED PT WAS DROOLING ON THE RIGHT SIDE, WEAKNESS ON RIGHT SIDE NOTED NOT PREVIOUSLY NOTED ON 08-11-19. HEAD TILTED MORE TOWARDS RIGHT SIDE.
--- NOTE | 2019-08-19 10:54 | NUR ---
DR HUFFMAN ON UNIT TO ASSESS PT.
--- NOTE | 2019-08-19 11:01 | NUR ---
DR BERG UPDATED ON PT CONDITION. DR STATED TO DC RISPERDAL ALL TOGETHER SINCE PT IS HAVING SOME ISSUES.
--- NOTE | 2019-08-19 11:24 | NUR ---
PT BACK FROM CT WITH SECURITY, MILIEU, AND TRANSPORT. NO ADVERSE BEHAVIORS NOTED WHILE AT CT
--- NOTE | 2019-08-19 11:48 | NUR ---
PHYSICAL THERAPY Alley completed full details to follow pt a moderate level of complexity-[id number] Reccomend SNF at discharge due to change in functional status. PT to work on transfers, amb with AD, strengthening, ROM, balance and safety, thank you. Susan Plaza PT
--- NOTE | 2019-08-19 11:48 | NUR ---
AM GROUP PT WAS PRESENT FOR MORNING GROUP THERAPY RECLINED IN A VI CHAIR SLEEPING OFF AND ON. PT WOKE AND REQUESTED TO SIT UPRIGHT. PT SAID, "THANK YOU THAT FEELS BETTER" PT WAS TAKEN FROM THE DAYROOM FOR TESTING. PT DID NOT EXHIBIT ANY AGITATION OR AGGRESSION WHILE IN GROUP
--- NOTE | 2019-08-19 15:48 | NUR ---
PM GROUP PT WAS PRESENT FOR AFTERNOON GROUP THERAPY SITTING UPRIGHT IN A VI CHAIR. PT WAS BECOMING INCREASINGLY AGITATED AND KEPT ATTEMPTING TO GET UP UNAWARE OF SAFETY. PT WAS RECLINED AND TAKEN INTO THE [place] FOR CLOSER MONITORING. PT COULD NOT BE REDIRECTED.
[2019-08-19 19:44] VITALS: BP 130/70
--- NOTE | 2019-08-19 21:39 | NUR ---
P-CONFUSION, IRRITABLITY I-REDIRECTION WITH 1: THERAPEUTIC INTERVENTIONS AND PRESENT REALITY. EDUCATE AND ENCOURAGE MEDICATION COMPLIANCE R-PATIENT MEDCIATION COMPLIANT WITH ENCOURAGEMENT. PATIENT NEEDING ASSISTANCE WITH ADL'S, TRANSFERRING AND TOILETING. PATIENT ISOLATIVE IN DINING ROOM WITH PEERS.YELLING OUT FOR "MARTINA". PATIENT PROVIDED NOURISHMENT AND FLUIDS THIS SHIFT. PATIENT IRRITABLE WITH REDIRECTION AT TIMES P-CONTINUE TO ENCOURAGE MEDICATION COMPLIANCE, CONTINUE TO PRESENT REALITY, ENCOURAGE GROUP THERAPY WHILE AWAKE
--- NOTE | 2019-08-20 06:39 | NUR ---
PATIENT SLEPT 2-3 HOURS OF INTERRUPTED SLEEP THROUGHOUT SHIFT. Q 15 MINUTE CHECKS MAINTAINED
--- NOTE | 2019-08-20 07:35 | NUR ---
PHYSICAL THERAPY Patient seen this am for therapy visit and was supine in bed upon therapist arrival. Patient identified by name / and reported no new c/o's this morning. OT billing and accounting staff assistant was present for observation only as patient transfers supine to sit EOB with MOD A. Patient needed a minute or so to fully awaken and collect himself, then transfers sit to stand MOD A x 2. Patient initially presented with R side standing lean, needing v/c to correct prior ambulating with use of wh walker, MIN A, demonstrating Poor upright posture, decreased stride and unsteady gait pattern. Patient needed multiple v/c's to complete all gait training and is a very high risk for falling. Patient ambulated total distance of 50'x1 and returned to his Elma chair in activity room, with body alarm, under [facility] staff Supervision. Will continue per POC as tolerated, total treatment time 16 minutes. Carrillo De, MAINTENANCE ELECTRICIAN
[2019-08-20 07:37] VITALS: BP 135/73
--- NOTE | 2019-08-20 07:40 | NUR ---
Patient resting quietly with no c/o discomfort. Respirations easy and regular. Vital signs stable. No overt distress. GIVENS,NADIA
--- NOTE | 2019-08-20 07:51 | NUR ---
OT NOTE Pt was seen this A.M. 1:1 for 15 minute OT session with STORE PROTECTION SPECIALIST and nursing staff present for observation only. Upon arrival pt was supine in bed. Pt identified by name and and had no complaints at this time. Pt transferred supine to sit EOB with modA X 2. While sitting EOb pt presented with R lateral lean and retrograde posture that required Yvette to correct. Pt completed grooming task while sitting EOB consisting of washing his face and hands with Yvette due to being unable to correct R lateral lean. Sit to stand completed from bed level with modA x 2 and use of w/w for UE support. Functional mobility was then completed to the mari chair with modA and use of w/w with assist needed for walker navigation and safety awarness. Pt was left sitting upright in the mari chair in the dining room with body alarm activated and under U staff supervision. Continue with rec D/C plan to SNF. CHAUNCEY Vargas
--- NOTE | 2019-08-20 12:10 | NUR ---
Spoke with Legal Guardian concerning possible debridement of Wound, Verbal Consent given via telephone.
--- NOTE | 2019-08-20 13:57 | NUR ---
Family meeting held via the phone. Spoke with pt's guardian Edward Ruelas and provided him with information involving wound on pt's foot and the stated requirements of [facility], the [facility] where pt resides. Mr Ruelas voiced understanding of the current situation and the possibility of the AL not accepting pt back if documentation of the wound remains as is. Asked for preference of SNF should this be required. Mr Ruelas would like to think about the options and will speak with this song writer on Friday.
--- NOTE | 2019-08-20 14:32 | NUR ---
PASRR Completed online in [facility]. Requires further review. Faxed Clinical Supporting Documentation to [facility] for further review. Placed in Chart. Orders received for SNF for PT/OT and Wound Care from Dr. Cruz. Will work with Guardian for facilities on Friday.
--- NOTE | 2019-08-20 15:23 | NUR ---
OCCUPATIONAL THERAPY CO-SIGN I approve of the Occupational Therapy notes written above. ROSS ROE OTR/Delisa
--- NOTE | 2019-08-20 15:44 | NUR ---
UPDATED DR BERG AFTER PT RECEIVING MEDICATION. PT WAS AMBULATORY WITH 1 ASSIST AND WALKER THIS AM. AFTER MEDICATION GIVEN PT BECAME A HEAVY 2 ASSIST FOR LIFTING. PT UNABLE TO STAND WITH [address] BERG STATED TO DC THE DEPAKOTE ORDERS ALTOGETHER AND SEE HOW PT REACTS. WILL MONITOR PT FOR BEHAVIORS AND EFFECTIVENESS OF OTHER MEDICATION.
[2019-08-20 19:51] VITALS: BP 147/77
--- NOTE | 2019-08-20 21:23 | NUR ---
P-CONFUSION, MILDLY IRRITABLE I-PROVIDE EMOTIONAL SUPPORT, ASSESS ORIENTATION, REORIENT, ADMINISTER MEDS, MONITOR SLEEP R-PT HAS BEEN SITTING IN THE DINING ROOM IN A VI CHAIR. ALERT TO SELF ONLY. STATED THAT HE IS IN [place], [place]. THE YEAR IS 1999 & THE PRESIDENT IS BONY. UPON REORIENTATION CONTINUES TO STATE 1999 & PRESIDENT IS WILFRID. SHORT & LONG MEMORY DEFICITS VERY EVIDENT. CONFUSION CONTINUES WITH BRIEF IRRITABILITY AT TIMES. PT STATED, "I NEED TO GET OUT OF HERE & GET TO MY ". SPEECH IS SLOW BUT CLEAR. ATE SNACK. HS BEDSIDE GLUCOSE 186. COMPLIANT WITH MEDICATIONS. INCONTINENT OF URINE. REQUIRES 2 STAFF ASSISTS. P-CONTINUE TO MONITOR & PROVIDE PHYSICAL & EMOTIONAL SUPPORT NEEDED.
--- NOTE | 2019-08-21 06:28 | NUR ---
PT HAS SLEPT QUIETLY PAST 2215. GIVEN A COMPLETE BED BATH THIS AM.
--- NOTE | 2019-08-21 06:39 | NUR ---
AM BEDSIDE GLUCOSE 132
[2019-08-21 07:40] VITALS: BP 115/69
--- NOTE | 2019-08-21 10:50 | NUR ---
DR. XIAO ON UNIT TO ASSESS PT, UPDATE PROVIDED.
--- NOTE | 2019-08-21 11:56 | NUR ---
AM GROUP/EXERCISES/MUSIC/BRAIN GAMES PT ATTENDED FIRST PART OF GROUP BUT PUTTING HIS HEAD DOWN IF HE WANTS TO FALL ASLEEP. PT THEN LEFT ACTIVITY ROOM TO NOT RETURN. PT WILL CONTINUE TO BE ENOCURAGED TO ATTEND AND PARTICIPATE IN GROUP TO BEST OF PT ABILITY.
--- NOTE | 2019-08-21 15:36 | NUR ---
P: PT SLIGHTLY IRRITABLE AND AGITATED WITH STAFF AT TIMES. PT RESTLESS. REFUSED TO PARTICIPATE IN GROUP/ACTIVITIES. I: PROVIDE EMOTIONAL SUPPORT AND 1:1 FOR PT TO VOICE FEELINGS, ENCOURAGE PT TO PARTICIPATE IN GROUPS/ACTIVITES, PROVIDE DIVERSIONAL ACTIVITIES, UTILIZE MERRYWALKER FOR PT'S RESTLESSNESS. R: PT ALERT TO PERSON ONLY, THINKS THE YEAR IS 1999 AND HES IN [place]. MERRYWALKER EFFECTIVE FOR PT'S RESTLESSNESS. PT REMAINS IRRITABLE AT TIMES. NO HALLUCINATIONS NOTED. PT DENIES ANY SUICIDAL THOUGHTS. PT CONTINENT OF BOWEL AND BLADDER, EPISODES OF INCONTINENCE NOTED, CARE PROVIDED NEEDED. P: MONITOR PT BEHAVIORS ON Q15 MIN SAFETY CHECKS, ENCOURAGE MED COMPLIANCE AND PROVIDE MED EDUCATION, PROVIDE EMOTIONAL SUPPORT AND 1:1 FOR PT TO VOICE FEELINGS, UTILIZE MERRYWALKER FOR PT'S RESTLESSNESS, REORIENT AND PRESENT REALITY NEEDED
--- NOTE | 2019-08-21 15:45 | NUR ---
PM GROUP/CRAFTS/LEISURE PT IN ATTENDANCE WANDERING ACTIVITY ROOM IN [facility]. PT OFFERED ACTIVITY'S BUT PT CHOSE NOT TO PARTICIPATE. PT OBSERVING FOOTBALL GAME ON TV. PT RANDOMLY TALKING NONSENSICALLY AT THIS TIME BUT DID NOT EXPRESS ANY AGRESSION OR AGITATION. PT WILL CONTINEU TO BE ENCOURAGED OT ATTEND AND PARTICIPATE IN FUTURE GROUP SESSIONS TO BEST OF PT ABILITY.
[2019-08-21 19:53] VITALS: BP 131/73
--- NOTE | 2019-08-21 19:56 | NUR ---
24 HR chart check completed.
--- NOTE | 2019-08-21 21:08 | NUR ---
P-CONFUSION, MILDLY IRRITABLE I-PROVIDE EMOTIONAL SUPPORT, ASSESS ORIENTATION, REORIENT, ADMINISTER MEDS, MONITOR SLEEP R-PT HAS BEEN MOVING ABOUT THE UNIT IN A MERRY WALKER. ALERT TO SELF ONLY. STATED THAT HE IS IN [place], [place]. THE YEAR IS 2016 & THE PRESIDENT IS CATARINA. UPON REORIENTATION STATED HE IS IN [place], [place], THE YEAR IS 2009 & PRESIDENT IS ALEKSANDRA. SHORT & LONG MEMORY DEFICITS VERY EVIDENT. CONFUSION CONTINUES WITH BRIEF IRRITABILITY AT TIMES. SPEECH IS SLOW BUT CLEAR. WAS FED SNACK. HS BEDSIDE GLUCOSE 309. COMPLIANT WITH MEDICATIONS. INCONTINENT OF URINE. REQUIRES 2 STAFF ASSISTS. P-CONTINUE TO MONITOR & PROVIDE PHYSICAL & EMOTIONAL SUPPORT NEEDED.
--- NOTE | 2019-08-22 05:44 | NUR ---
PT HAS SLEPT PAST 2229
--- NOTE | 2019-08-22 06:48 | NUR ---
AM BEDSIDE GLUCOSE 120
[2019-08-22 07:49] VITALS: BP 134/76
--- NOTE | 2019-08-22 09:08 | NUR ---
DR HUFFMAN ON UNIT TO SEE PATIENT
--- NOTE | 2019-08-22 09:59 | NUR ---
P-CONFUSION I-REDIRECTION WITH 1: THERAPEUTIC INTERVENTIONS AND PRESENT REALITY. EDUCATE AND ENCOURAGE MEDICATION COMPLIANCE R-PATIENT MEDCIATION COMPLIANT. PATIENT NEEDING ASSISTANCE WITH ADL'S, TRANSFERRING AND TOILETING. PATIENT ISOLATIVE IN DINING ROOM WITH PEERS.PATIENT RESTING HEAD ON TABLE THROUGHOUT SHIFT. PATIENT PROVID PATIENT IRRITABLE WITH REDIRECTION AT TIMES BUT EASILY REDIRECTED. DRESSING CHANGED TO LEFT FOOT P-CONTINUE TO ENCOURAGE MEDICATION COMPLIANCE, CONTINUE TO PRESENT REALITY, ENCOURAGE GROUP THERAPY WHILE AWAKE
--- NOTE | 2019-08-22 16:14 | NUR ---
Shift chart check completed.
[2019-08-22 19:49] VITALS: BP 126/65
--- NOTE | 2019-08-22 22:30 | NUR ---
P: CONFUSION, REPEATATIVE, FALL RISK, LACK OF SAFETY AWARENESS, I: MEDICATION ADMINISTERED ORDERED, PROVIDE REDIRECTION ABLE, DISTRACTIONS WITH SNACKS, DRINKS, T.V. 1:1 INTERACITONS. FALLING STAR PROTOCAL MAINTAINED, PT TO HAVE 1-2 ASSIST WITH ALL MOBILITY NEEDED R: PT ATTEMPTS TO AMBULATE WITHOUT STAFF FREQUENTLY DUE TO LACK OF AWARENESS OF UNSTEADY GAIT. MEDICATION COMPLIANT, PT DOES ENJOY SNACKS, DRINKS, AND 1:1 BUT WILL CONTINUE TO ASK WHEN HE GETS TO GO HOME. PT REMAINS CONTINENT, PT ASSISTED WITH 1-2 ASSIST WITH MODERATE GUIDANCE AT THIS TIME. STAFF TO CONTINUE TO AMBULATE PT ABLE. P: PT TO CONTINUE MEDICAITON ADJUSTMENTS WITH STAFF MONITORING FOR EFFECTIVENESS OR CHANGES NEEDED, CONITNUE TO ASSIST PT WITH HOC AND MOBILITY ENSURING SAFETY NEEDS, FALLING STAR PROTOCOL IN PLACE. PT ENCOURAGED TO USE CALL BUTTON, BED ALARM INTACT. MONITOR 15 MIN CHECKS. NO AGRESSION NOTED THIS SHIFT. NO SI/HI OR DELUSIONS NOTED.
--- NOTE | 2019-08-23 05:14 | NUR ---
PT SLEPT 5.5 HOURS IN BED AND THEN ATTEMPTED TO GET OUT OF BED 3 TIMES AND WAS REDIRECTED. ON 3RD ATTEMPT STAFF GOT PT UP TO VI CHAIR, PT IS CURRENTLY BACK TO SLEEP WITH WARM BLANKET IN FRONT OF NURSES STATION
--- NOTE | 2019-08-23 05:21 | NUR ---
24 HR chart check completed.
--- NOTE | 2019-08-23 06:02 | NUR ---
FREDRICK FALK [id number] Please refer to the physician's history and physical for past medical history, comorbid conditions, and allergies. Diagnosis: INTERMITTENT EXPLOSIVE DISORDER,PSYCHOTIC DISORDER Robert Score: 21,LOW OR NO RISK WOUND DESCRIPTIONS: Wound Number: 1 Location of the wound: left lateral foot Type of wound: unstageable Thickness: Full Size: 1.7cm x 1.4cm x <0.1cm Tunneling: none Undermining: none Sinus Tract: none Presence of Exudate: none Amount: None Color: Brown Odor: None Periwound Skin Appearance: Normal Wound edges: approximated Pain (associated with wound): none at time of assessment How does patient state this happened? pt unable to state how this happened Surface the patient is resting on: Proform SKIN PREVENTION RECOMMENDATION: 1. Pressure redistribution support surface as appropriate 2. Elevate heels 3. Remove boots/TEDS every shift and reapply 4. Head of bed 30 degrees as tolerated 5. Assess nutrition and hydration 6. Manage moisture 7. Avoid the use of containment devices while in bed 8. Use absorptive products on surfaces limit layers of linens on bed 9. Turn and reposition every 1-2 hours in bed and every 1 hour in chair as tolerated 10. Weight shifts every 15 minutes while up in chair 11. Offloading with pillows or device to keep heels elevated off bed 12. Monitor skin at least every shift 13. Inspect under medical devices twice a day WOUND TREATMENT RECOMMENDATIONS: Continue dressing change: apply betadine to left lateral foot and cover with dsd daily and prn for soiling.
[2019-08-23 07:58] VITALS: BP 141/69
--- NOTE | 2019-08-23 08:00 | NUR ---
Patient resting quietly with no c/o discomfort. Respirations easy and regular. Vital signs stable. No overt distress. RADHA SR
--- NOTE | 2019-08-23 08:15 | NUR ---
Treatment Plan meeting was held this a.m. with Dr. Cruz, RN, AT, LANDS RESOURCE MANAGER-S and Furniture Cleaner. Plan for discharge at the end of the week. Pt. will require SNF. Pt. Legal Guardian is to call with facilities this week that he would like referrals faxed to.
--- NOTE | 2019-08-23 08:20 | NUR ---
OT NOTE Pt was seen this A.M. 1:1 for 30 minute OT session with DIRECTOR OF ONCOLOGY and nursing staff present for observation only. Upon arrival pt was sitting semi reclined in the mari chair in the dining room. Pt identified by name and and had no complaints at this time. Pt's breakfast tray arrived, pt's chair sat upright to ensure safety during self feeding. Pt required maxA for set up of tray and was presented with one item at a time from his tray to avoid distractions and increase I. Pt was able to complete self feeding while managing all utensils with his RUE with supervision. All drinks were managed using B hands with supervision. Once pt's breakfast was complete pt was taken to the hallway where he completed sit to stand from chair level with CGA and use of w/w for UE support. Functional mobility was then completed into the bathroom with CGA and use of w/w. He then stood at the standard commode with CGA while completing toileting task. Clothing management completed with CGA. While standing at the commode with no UE support pt had multiple episodes of retrograde posture that required modA to correct. Pt then stood sink side while washing his hands with Yvette for sequencing and managing sink. Again while standing sink side without any UE support pt had multiple retrograde episodes that required modA to correct. Functional mobility was then completed back to the mari chair with CGA and use of w/w. Pt was left sitting reclined in the mari chair in the dining room under [facility] staff supervision and with body alarm activated for safety. Continue with rec D/C plan to SNF. CHAUNCEY Varags
--- NOTE | 2019-08-23 09:26 | NUR ---
PHYSICAL THERAPY Patient presented to therapy in mari-chair in reclined position with chair alrm attached and report of no complaints. Patient was identified by name and on wristband. Patient gives informed consent for treatment. ALLISON LENNON PRESENT WITNESS TO TREATMENT. Patient performed sit to stand out of tran-chair with CGA X 1. Patient ambulated with Wh Walker and CGA X 1 with other therapist pushing mari-chair behind the patient for 60' x 3 and standing rest breaks at every 60'. Patient stood at toilet with retro-grade motion that required MIN A X 1 to correct and would have resulted in a fall if the patient was by himself. Patient also had retrograde motion back on heels while standing at the sink, which required MIN A X 1 to correct and would have resulted in a backward fall, if the the patient was standing without a therapist present. Patient ambulated back to the activity room with CGA X 1 AND MARI-CHAIR FOLLOW for another 60' x 1. Patient standing tolerance was performed at railing with CGA X 1 for 2 minutes prior to ambulating this AM. Patient was left in mari-chair in reclined position with chair alarm attached and [facility] STAFF present in activity room. Patient was 1:1 with this INDUSTRIAL COFFEE GRINDER for 20 minutes total. ARSALAN CORONADO INDUSTRIAL COFFEE GRINDER
--- NOTE | 2019-08-23 09:30 | NUR ---
DR. GALLEGO ON UNIT TO ASSESS PATIENT.
--- NOTE | 2019-08-23 11:41 | NUR ---
AM GROUP PT WAS PRESENT FOR MORNING GROUP THERAPY SLEEPING SOUNDLY RECLINED IN A VI CHAIR. PT AWOKE AND WANTED THE FOOTSTOOL PUT DOWN COMPLAINING THAT HIS BEHIND HURT. PT WAS SET UPRIGHT AND STATED THAT HE WANTED TO STAND UP AND STRETCH. PT NURSE WAS NOTIFIED. PT CONTINUED TO ATTEMPT TO STAND ON HIS OWN SETTING OFF CHAIR ALARM. PT WAS TOLD THAT HE WOULD BE STOOD UP AND WALKED SOON SOMEONE WAS AVAILABLE. PT WAS CONTENT WITH THIS FOR A FEW MINUTES AND TRIED TO GET UP AGAIN. PT IS A FALL RISK AND WAS PLACED IN THE BARTON GROUP WAS ENDING AND PT COULD BE BETTER MONITORED
--- NOTE | 2019-08-23 13:24 | NUR ---
Referral faxed to Ignacio at [facility] at request of Legal Guardian Attn: Phyllis Lion.
--- NOTE | 2019-08-23 13:37 | NUR ---
Spoke with pt's guardian Edward Ruelas. Updated Mr Ruelas on status of wound on pt's foot and reviewed PT evaluation with him. Mr Ruelas would like a referral to Ignacio at [facility].
--- NOTE | 2019-08-23 15:10 | NUR ---
Spoke with pt's daughter Delmis and provided update. Per approval of pt's guardian Edward Ruelas, this narrative writer informed Delmis of revised discharge plan of pt discharing to a SNF prior to returning to [facility].
--- NOTE | 2019-08-23 15:42 | NUR ---
PM GROUP PT ATTENDED AFTERNOON GROUP THERAPY BUT IS UNABLE TO PARTICIPATE DUE TO COGNITIVE IMPAIRMENT. PT KEPT TRYING TO GET UP AND STAND/WALK ON HIS OWN. PT WAS EASILY DISTRACTED AND EXHIBITED NO AGITATION OR AGGRESSION.
--- NOTE | 2019-08-23 16:49 | NUR ---
Shift chart check completed.
--- NOTE | 2019-08-23 16:55 | NUR ---
P: DELUSIONAL THOUGHTS VOICED. "I WANT TO KNOW WHERE THE TICKET CLAIMS ARE?" PATIENT TOUCHING ANOTHER PATIENTS SHOULDER, STATING "HEY DON'T YOU KNOW SHE IS MY MOM" MOOD SLIGHTLY IRRITABLE. I: ONE ON ONE FOR EMOTIONAL SUPPORT, REDIRECTION AND REORIENTATION. R: EFFECTIVE. PATIENT ABLE TO BE REDIRECTED. ORIENTATION INEFFECTIVE. ONE ON ONE, AMBULATED WITH STAFF ASSISTANCE WHEN BECOMING IRRITABLE. PATIENT IS ALERT TO SELF WITH CONFUSION. ABLE TO VOICE NEEDS. LONG/SHORT TERM MEMORY DEFICITS. MOOD IS SLIGHTLY IRRITABLE. RESPONDING TO INTERNAL STIMULI. NO VOICED STATEMENT OF HI/SI OR PAIN. MEDICATION COMPLAINT. Q 15 MINUTE SAFETY CHECKS MAINTAINED. 2 PERSON ASSISIT WITH ACTIVITIES OF DAILY LIVING, CONTINENT OF BOWEL AND BLADDER. SET UP FOR MEALS, INTAKES ARE GOOD WITH ADEQUATE FLUIDS. LEFT FOOT TREATMENT COMPLETE WITHOUT DIFFICULTIES. P: CONTINUE TO MONITOR MOOD AND AGGRESSION, HALLUCINATIONS/DELUSIONS. PROVIDE ONE ON ONE AND REDIRECTION NEEDED.
[2019-08-23 19:52] VITALS: BP 147/84
--- NOTE | 2019-08-23 21:17 | NUR ---
P:ST/LT MEMORY IMPAIRMENT, PT YELLS OUT "I WANT TO GO" "WHO IS IN CHARGE HERE" I: PT REDIRECTED AND REORIENTED NEEDED AT THIS TIME, OFFERED SNACKS, REASSURANCE OF COMFORT AND BEING SAFE ON THIS UNIT. R: PT ACCEPTS STATEMENTS FOR SHORT PERIODS OF TIMES, ENJOYS SNACKS, AND HAS BEEN RECEPTIVE TO AMBULATING WITH STAFF 1 ASSIST IN HALLWAYS TO DECREASE RESTLESS BEHAVIORS. P: CONTINUE TO AMBULATE PT TO INCREASE GAIT MOBILITY AND DECREASE RESTLESS BEHAVIORS, REDIRECT NEEDED. CALM ENVIRONMENT, PROMOTE REST AND REGULAR ROUTINE. PT REQUIRES STAFF FRO HOC AT THIS TIME, DRESSING INTACT TO FOOT, NO COMPLAINT OF PAIN OR DISCOMFORT. NO SI/HI OR DELUSIONS PRESENT. CONTINUE TO MONITOR 15 MIN CHECKS
--- NOTE | 2019-08-24 05:52 | NUR ---
SLEPT 7 HOURS WITH 1 AWAKENING 24 HR chart check completed.
--- NOTE | 2019-08-24 07:35 | NUR ---
PHYSICAL THERAPY Patient seen this am for therapy visit and was semi reclined in activity room [facility] chair upon therapist arrival. Patient identified by name / and initially declined therapist request to take a walk. Patient reconsidered and was very pleasant, transfering sit to stand CGA, then ambulating with use of wh walker, 75'x 1, CGA. Patient demonstrated slow, steady edi with decreased stride and mild "slouched" standing posture. Patient needed v/c to stand tall with BIG steps and completed all gait ex reporting no new c/o's. Patient returned to [facility] chair, semi reclined with lap tray in activity room and remained under [facility] staff Supervision. OT assurance assistant was also present for obervation only during NUCLEAR MEDICINE SPECIALIST visit. Will continue per POC as tolerated, total treatment time 16 minutes. Carrillo De, NUCLEAR MEDICINE SPECIALIST
--- NOTE | 2019-08-24 07:42 | NUR ---
OT NOTE Pt was seen this A.M. 1:1 for 23 minute OT session with MUSIC JOURNALIST and nursing staff present for observation only. Upon arrival pt was sitting semi reclined in the dining room. Pt identified by name and and had no complaints at this time. Pt was taken out into the bathroom where he completed multiple sit to stand transfers from chair level with Yvette and use of w/w for UE support. Challenged pt's static standing tolerance needed for increased I in self care tasks and functional transfers. Pt was able to tolerate aprox 3 minutes at a time before sitting due to fatigue. Pt's breakfast tray then arrived which he required Yvette for set up of tray and completed self feeding with supervision. Pt was presented with one item at a time to eliminate distraction. Pt managed all utensils with R hand and supervision and drinks with B hands and supervision. Pt was left sitting uproght in the mari chair in the dining room with lap tray in place, body alarm activated for safety, and under U staff supervision. Continue with rec D/C plan to SNF. ALLISON Vargas/Delisa
--- NOTE | 2019-08-24 08:15 | NUR ---
Treatment Plan meeting was held with Dr. Cruz, RN, AT and Log Preparer. Plan for discharge at the end of the week. Pt. requires alternate placement at this time as he is unable to return to Assisted Living.
[2019-08-24 08:32] VITALS: BP 133/80
--- NOTE | 2019-08-24 09:16 | NUR ---
Received Call from Jayjay at [facility] requesting further Clinical Updates. Faxed additional Clinicals to [facility] for Further Review.
--- NOTE | 2019-08-24 11:33 | NUR ---
/Left Message for Phyllis Lion Delivery Agent at [facility] Concerning Referral Faxed /
--- NOTE | 2019-08-24 11:58 | NUR ---
AM GROUP PT WAS PRESENT FOR MORNING GROUP THERAPY SITTING IN THE [facility]. PT PARTICIPATED BY PAINTING AN ORNAMENT AND BY PLAYING CHECKERS FOR A SHORT TIME WITH THIS APPLIED ANTHROPOLOGIST. PT BECAME PREOCCUPIED WITH UNDOING THE HENRIQUE AND ONCE REMINDED WOULD LEAVE THEM ALONE. PT EXHIBITED NO AGITATION OR AGGRESSION WHILE IN GROUP. PT DID NOT EXIT SEEK.
--- NOTE | 2019-08-24 12:18 | NUR ---
DR. BROWN ON UNIT TO ASSESS PATIENT.
--- NOTE | 2019-08-24 12:24 | NUR ---
Pt. accepted at Ignacio at [facility] for SNF. Spoke with Phyllis Lion Dishcloth Folder at facility. Advised of plans to discharge Possible Friday.PASRR returns approved. Requires no further review. [facility] [phone].
--- NOTE | 2019-08-24 12:28 | NUR ---
Spoke with Edward Ruelas Legal Guardian via telephone. Notified that patient accepted at [facility]. Edward Ruelas is ok with patient going to [facility] at Discharge.
--- NOTE | 2019-08-24 15:40 | NUR ---
PM GROUP PT ATTENDED AFTERNOON GROUP THERAPY BUT IS UNABLE TO PARTICIPATE AT THIS TIME DUE TO COGNITIVE IMPAIRMENT. PT CONTINUES TO STAND AND ATTEMPT TO WALK UNASSISTED WITH NO AWARENESS FOR SAFETY. PT IS EASILY REDIRECTED AND ONLY BECOMES SLIGHTLY AGITATED AT REALITY PRESENTATION. PT DID NOT EXIT SEEK
--- NOTE | 2019-08-24 16:00 | NUR ---
Shift chart check completed.
--- NOTE | 2019-08-24 18:55 | NUR ---
P: EXIT SEEKING, YELLING AT STAFF FOR KEYS TO LEAVE. I: ONE ON ONE, REDIRECTION AND ORIENTATION TO UNIT, ENCOURAGE PATIENT TO FINISH EATING DINNER. R: INEFFECTIVE. PATIENT IS ALERT TO SELF WITH CONFUSION. ABLE TO VOICE NEEDS. LONG/SHORT MEMORY DIFICITS. PATIENT BELIEVES HE IS IN [place], [place]GUST OF 2011 AND [place] IS PRESIDENT. PATIENT STATES "52" YEARS OF AGE. DENIES ANY HALLUCINATIONS, DELUSIONS, HI/SI OR PAIN. PATIENT INTERACTIVE WITH STAFF AND PARTICIPATED IN GROUP SESSION. AMBULATORY WITH STEADY GAIT. CONTINENT OF BOWEL AND BLADDER, SET UP FOR MEALS, INTAKES ARE GOOD WITH ADEQUATE FLUIDS. MEDICATION COMPLAINT. Q 15 MINUTE SAFETY CHECKS MAINTAINED. P: CONTINUE TO MONITOR MOOD, AGGRESSION AND EXIT SEEKING. PROVIDE ONE ON ONE, REDIRECTION/ORIENTATION, DIVERSIONAL ACTIVITIES AND OFFERED FOOD AND DRINK NEEDED.
[2019-08-24 19:37] VITALS: BP 129/67
--- NOTE | 2019-08-24 20:43 | NUR ---
24 HR chart check completed.
--- NOTE | 2019-08-24 23:33 | NUR ---
P-CONFUSION, IRRITABLE, ELOPEMENT RISK I-PROVIDE EMOTIONAL SUPPORT, ASSESS ORIENTATION, REORIENT & REDIRECT FREQUENTLY. ADMINISTER MEDS, MONITOR SLEEP, MAINTAIN ELOPEMENT PRECAUTIONS. R-PT INDEPENDENTLY AMBULATES WITH A SLIGHTLY UNSTEADY GAIT. HAS MADE NO ATTEMPTS TO LEAVE THE UNIT. SAT IN THE DINING ROOM & WATCHED TV. ALERT TO SELF ONLY. STATED HE IS AT "[place], [place]". DIDNT KNOW THE YEAR & "ALEKSANDRA" IS THE PRESIDENT. HE ALSO STATED THAT HE IS 40 YEARS OLD. WHEN INFORMED THAT HE IS 69, HE WAS ADAMENT & STATED, "NO I'M NOT. I'M ONLY 40". REORIENTATION PROVIDED & REASSESSED APPROX 15 MIN LATER. STATED HE WAS IN "[place]2019, NICOLLE IS PRESIDENT". SHORT & PERINATAL EDUCATOR MEMORY DEFICITS EVIDENT. CONFUSED & DISPLAYS MILD IRRITABIILITY WHEN STAFF ASKS HIM QUESTIONS. ATE SNACK. HS BEDSIDE GLUCOSE 188. COMPLIANT WITH MEDICATIONS. P-CONTINUE TO MONITOR & PROVIDE PHYSICAL & EMOTIONAL SUPPORT NEEDED.
--- NOTE | 2019-08-25 05:39 | NUR ---
SLEPT PAST 2200
--- NOTE | 2019-08-25 06:25 | NUR ---
AM BEDSIDE GLUCOSE 149
--- NOTE | 2019-08-25 07:05 | NUR ---
PHYSICAL THERAPY Patient seen this am for therapy visit and was just awakening supine in bed upon therapist arrival. Patient identified by name / and needed a few mintues to fully awaken. OT promotional advertising assistant was present this morning for observation only as patient transfers supine to sit EOB and then sit to stand with Supervision. Patient ambulates with use of wh walker, 100'x 1, SBA, demonstrating slow, steady edi, no LOB, however was very "shaky" walking backwards 5-6 steps with CGA. Patient returned to [facility] chair in activity room awaiting breakfast under [facility] staff Supervision. Will continue per POC as tolerated, total treatment time 14 minutes. Carrillo De, MUD ANALYSIS WELL LOGGING OPERATOR
--- NOTE | 2019-08-25 07:17 | NUR ---
OT NOTE Pt was seen this A.M. 1:1 for 17 minute OT session with FURNITURE ARRANGER and nursing staff present for observation only. Upon arrival pt was supine in bed. Pt identified by name and and had no complaints at this time. Pt transferred supine to sit EOB with supervision. While sitting EOB pt donned B socks with Yvette for inital start over his toes. Sit to stand then completed from bed level with CGA for safety and use of w/w for UE support. Functional mobility was then completed to the dining room with CGA and use of w/w. There he was presented with his breakfast which he required Yvette for set up and completed all self feeding with supervision. Pt was left sitting upright in the mari chair in the dining room under U staff supervision and body alarm activated for safety. Continue with rec D/C plan to SNF. ALLISON Vargas/Delisa
[2019-08-25 07:56] VITALS: BP 114/82
--- NOTE | 2019-08-25 08:15 | NUR ---
Treatment Plan meeting was held with Dr. Cruz, RN, AT and Fire Suppression Captain in attendance. Plan for discharge Friday with possible Friday discharge. Pt. is accepted at [facility].
--- NOTE | 2019-08-25 09:49 | NUR ---
Clinical Updates faxed to Ignacio at [facility] Attn: Phyllis.
--- NOTE | 2019-08-25 12:50 | NUR ---
AM GROUP NO AM GROUP DUE TO NEW PT ASSESSMENTS
--- NOTE | 2019-08-25 15:36 | NUR ---
P: CONFUSED, SLIGHTLY IRRITABLE, PACING, LOOKING FOR "TROY" SPOUSE. STATED "SHE'S SLEEPING OVER THERE" WHILE IN DINING ROOM. I: ONE ON ONE, REDIRECTION/ORIENTATION. R: EFFECTIVE; ABLE TO REDIRECTION, ORIENTATION INEFFCTIVE. PATEINT IS ALERT TO SELF WITH CONFUSION; ABLE TO VOICE NEEDS. MOOD IS SLIGHTLY IRRITABLE. PATIENT RECALLS: BEING IN THE [facility], [place] IS PRESIDENT AND AGE OF "58" PATIENT REORIENTED TO ALL SPHERES; DID NOT RESPOND TO REORIENTATION. 1 PERSON ASSIST WITH ACTIVITIES OF DAILY LIVING, CONTINENT OF BOWEL AND BLADDER. SET UP FOR MEALS, INTAKES ARE GOOD WITH ADEQUATE FLUIDS. AMBULATORY WITH STEADY GAIT. P: CONTINENT TO MONITOR FOR PACING, EXIT SEEKING, MOOD, AGGRESSION, MEDICAITON COMPLAINCE. PROIVDE ONE ON ONE, REDIRECTION/ORIENTATION NEEDED.
--- NOTE | 2019-08-25 15:38 | NUR ---
PM GROUP PT ATTENDED AFTERNOON GROUP THERAPY AND PARTICIPATED OFF AND ON BY WATCHING A MOVIE. PT WOULD GET UP AND PACE THE HALLWAY AND THEN COME BACK INTO THE DAYROOM, SIT DOWN, WATCH TV FOR A FEW MINUTES AND DO IT ALL OVER AGAIN. PT EXHIBITED NO EXIT SEEKING BEHAVIORS. PT REPEATEDLY STATED,"I AM LOOKING FOR MY ." PT BECAME AGITATED WITH MHW WHO TRIED TO PRESENT REALITY.
[2019-08-25 19:47] VITALS: BP 112/80
--- NOTE | 2019-08-25 20:19 | NUR ---
24 HR chart check completed.
--- NOTE | 2019-08-25 21:19 | NUR ---
P-CONFUSION, IRRITABLE, ELOPEMENT RISK I-PROVIDE EMOTIONAL SUPPORT, ASSESS ORIENTATION, REORIENT & REDIRECT FREQUENTLY. ADMINISTER MEDS, MONITOR SLEEP, MAINTAIN ELOPEMENT PRECAUTIONS. R-PT INDEPENDENTLY AMBULATES WITH A STEADY GAIT. HAS MADE NO ATTEMPTS TO LEAVE THE UNIT. SAT IN THE DINING ROOM & WATCHED TV OFF & ON & WALKED IN HALLS FREQUENTLY. ALERT TO SELF ONLY. STATED HE IS AT "[facility]", YEAR 2019, PRESIDENT "NICOLLE". STATED THAT HE IS 49 SOME YEARS OLD. WHEN INFORMED THAT HE WAS 69, HE SAID, "NO I'M NOT" RN REAFFIRMED THAT HE WAS 69 & HE CHUCKLED UNDER HIS BREATH & STATED, "OH THATS THE SECOND THING THAT GOES". REORIENTATION PROVIDED & REASSESSED APPROX 15 MIN LATER. STATED HE WAS IN "[place], [place], 2019, CANT REMEMBER THE PRESIDENTS NAME". SHORT & PENITENTIARY MEMORY DEFICITS. CONFUSED & DISPLAYS MILD IRRITABIILITY WHEN STAFF ASKS HIM QUESTIONS. ATE SNACK. HS BEDSIDE GLUCOSE 132. COMPLIANT WITH MEDICATIONS. P-CONTINUE TO MONITOR & PROVIDE PHYSICAL & EMOTIONAL SUPPORT NEEDED.
--- NOTE | 2019-08-26 06:12 | NUR ---
AM BEDSIDE GLUCOSE 140
--- NOTE | 2019-08-26 06:21 | NUR ---
PT HAS SLEPT PAST 2100 WITH 2 BRIEF AWAKENINGS. WHEN PT WAS UP AT 0420 HE WAS DIRECTED BACK TO HIS ROOM & BECAME SARCASTIC & PUFFED HIS CHEST AT STAFF & STATED, "I CAN DO WHAT I WANT TO DO". PT AMBULATED THROUGHOUT THE BARTON & EVENTUALLY WENT BACK TO HIS ROOM & RETURNED TO HIS BED. SARCASTIC THIS AM & ASK STAFF " WHERE ARE MY KEYS" REORIENTED TO PLACE & RAISED HIS VOICE AT STAFF & STATED "I'M LEAVING THIS PLACE. I'M NOT IN THE HOSPITAL".
--- NOTE | 2019-08-26 07:15 | NUR ---
PHYSICAL THERAPY Patient seen this am for therapy visit and was sitting in chair at table in activity room upon therapist arrival. Patient identified by name / and was pleasant this morning. Patient voices no new c/o's and asked when it was time for breakfast as he was hungry. Patient transfers sit to stand with Supervision and ambulates without AD this session, Supervision, 75'x 2, demonstrating slow, but steady edi. Patient needed v/c for increased B arm swing and tolerated eyes open / closed without LOB. Patient attmepted single leg stance, however was unable to maintain upright position on either leg with immediate LOB. Patient returned to chair at table in activity room awaiting breakfast, under [facility] staff Supervision. Will continue per POC as tolerated, total treatment time 16 minutes. Carrillo De, CARE CLINICIAN
--- NOTE | 2019-08-26 07:16 | NUR ---
OT NOTE Pt was seen this A.M. 1:1 for 18 minute OT session with ENGINEER OF SYSTEM DEVELOPMENT and nursing staff present for observation only. Upon arrival pt was sitting upright in the dining room. Pt identified by name and and had no complaints at this time. Sit to stand completed from chair level with SBA for safety followed by functional mobility to the bathroom with SBA and no adaptive device. There he stood sink side while washing his hands and face with SBA. Pt was able to complete set up and sequenced task with no verbal prompts and SBA. Functional mobility then completed back to the dining room with SBA. Pt's breakfast tray arrived which he was able to complete set up of tray this session with supervision and completed self feeding with all utensils and cups with supervision. Pt was left sitting upright in the dining room under [facility] staff supervision. Continue with rec D/C plan to SNF. ALLISON Vargas/Delisa
[2019-08-26 07:55] VITALS: BP 114/67
--- NOTE | 2019-08-26 08:15 | NUR ---
Treatment Plan meeting was held with Dr. Cruz, RN, AT, [facility] and Air Hammer Operator in attendance. Plan for discharge Friday/Friday to [facility] at [facility].
--- NOTE | 2019-08-26 11:05 | NUR ---
AND ON UNIT TO SEE PT AT THIS TIME.
--- NOTE | 2019-08-26 11:43 | NUR ---
AM GROUP AM GROUP WAS NOT CONDUCTED DUE TO NURSING STUDENTS BEING PRESENT.
--- NOTE | 2019-08-26 15:48 | NUR ---
PM GROUP/[place] PT DID NOT ATTEND AFTERNOON GROUP THERAPY. PT WAS PACING THE BARTON AND WOULD OCCASIONALLY COME IN AND SIT FOR A MINUTE BUT WOULD LEAVE AGAIN
--- NOTE | 2019-08-26 16:26 | NUR ---
P- CONFUSED, ELOPEMENT RISK, EASILY REDIRECTED, NO AGGRESSION NOTED. I- ORIENTATION, MOOD AND BEHAVIOR ASSESSED. PT DENIES SI/HI, INTENT OR PLAN. PT DENIES HALLUCINATIONS, PARANOIA AND/OR DELUSIONS. MEDICATIONS ADMINISTERED PER PHYSICIAN'S ORDERS. ASSISTANCE WITH ADL CARE PROVIDED NEEDED. ENCOURAGED PT TO ATTEND AND PARTICIPATE IN [facility] GROUPS AND ACTIVITIES. R- PT IS ALERT AND ORIENTED TO PERSON ONLY, APPROXIMATE TO PLACE. NOT TIME. PT STATES IT IS 1999 AND STATES HE IS IN A HOSPITAL IN [place]. NOT ORIENTED TO SITUATION. ST/LT MEMORY GAPS NOTED. RESPS EASY AND EVEN ON ROOM AIR. PT DENIES SI/HI, INTENT OR PLAN. PT DENIES HALLUCINATIONS, NO RESPONSE TO INTERNAL STIMULI NOTED. NO PARANOIA OR DELUSIONS NOTED. PT IS AMBULATORY WITH STEADY GAIT, ELOPEMENT PRECAUTIONS MAINTAINED, PT NOTED TO BE AT EXIT DOOR BUT EASILY VERBALLY REDIRECTED. MEDICATION COMPLIANT WITHOUT DIFFICULTY. NO DISTRESS NOTED. NO AGGRESSIVE BEHAVIORS DISPLAYED. P- PLAN TO CONTINUE CURRENT TREATMENT, CONTINUE TO MONITOR MOOD AND BEHAVIORS, PROVIDE APPROPRIATE REORIENTATION, REDIRECTION AND 1:1 NEEDED. CONTINUE TO ENCOURAGE MEDICATION COMPLIANCE WELL GROUP ATTENDANCE AND PARTICIPATION.
--- NOTE | 2019-08-26 17:31 | NUR ---
ATTEMPTED TO ADMINSTER PRN MOM FOR RELIEF OF CONSTIPATION X3 ATTEMPTS THIS SHIFT. PT REFUSED EACH TIME. +BSX4. PT STATES "I DONT NEED IT".
--- NOTE | 2019-08-26 17:40 | NUR ---
SHIFT CHART CHECK COMPLETED.
[2019-08-26 19:22] VITALS: BP 130/74
--- NOTE | 2019-08-26 21:00 | NUR ---
24 HR chart check completed.
--- NOTE | 2019-08-26 21:47 | NUR ---
P-CONFUSION, ELOPEMENT RISK I-PROVIDE EMOTIONAL SUPPORT, ASSESS ORIENTATION, REORIENT & REDIRECT FREQUENTLY. ADMINISTER MEDS, MONITOR SLEEP, MAINTAIN ELOPEMENT PRECAUTIONS. R-INDEPENDENTLY AMBULATES WITH A STEADY GAIT. WALKS FREQUENTLY IN THE [address] BUT HAS MADE NO ATTEMPTS TO LEAVE THE UNIT. WATCHED TV IN THE DINING ROOM. ALERT TO PERSON ONLY. CONTINUES TO STATE THAT HE IS IN DIFFERENT CITIES, DIFFERENT YEARS & NAMES DIFFERENT PRESIDENT. 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 CONFUSED BUT MORE PLEASANT WITH STAFF. ATE SNACK. HS BEDSIDE GLUCOSE 132. COMPLIANT WITH MEDICATIONS. P-CONTINUE TO MONITOR & PROVIDE PHYSICAL & EMOTIONAL SUPPORT NEEDED.
--- NOTE | 2019-08-27 05:09 | NUR ---
PT SLEPT FROM [id number]. HE HAS BEEN UP X4 ASKING WHAT TIME IT IS. HE WAS AWAKE AT 0100 & WAS HEARD WHISTLING IN HIS ROOM. HE WAS STANDING BY HIS ROOM MATES BED & CALLING HIM BY NAME & TELLING HIM IT WAS TIME TO GET UP. PT WAS REDIRECTED & CAME OUT OF HIS ROOM WITH IRRITABLE OVERTONES. ALERT TO PERSON ONLY & ASKING WHERE IS THIS PLACE. WHEN PROVIDED WITH ANSWERS HE WAS SLIGHTLY SARCASTIC WITH STAFF & DISAGREED WITH REALITY. HE THEN WALKED THE HALLS SEVERAL TIMES FROM HIS ROOM TO THE RED LINE NEAR EXIT DOOR. EACH TIME HE ATTEMPTED TO WALK FURTHER PAST HIS ROOM WHERE HE WAS TOLD NOT TO GO DUE TO OTHER PATIENTS SLEEPING. HE HAS TESTED LIMITS & REQUIRED REDIRECTION. RESPONSES WERE SARCASTIC AT TIMES & 2 OTHER TIMES HE DID GESTURES OF SALUTING STAFF & A CONFRONTATIONAL STANCE. HE STATED ONE TIME, "WELL I'LL BE DAM. I CAN BE EDUCATED". PT RETURNED TO BED AT 0245.
--- NOTE | 2019-08-27 06:31 | NUR ---
AM BEDSIDE GLUCOSE 174
--- NOTE | 2019-08-27 07:15 | NUR ---
PHYSICAL THERAPY Patient seen this am for therapy visit and was in the activity room upon therapist arrival. Patient identified by name / and reports no c/o's pain at this time. OT surgeon assistant was present this morning for observation only as patient is Independent with all transfers and ambulates without AD, ad scout in hallway with Supervision, > 150' x 1. Patient demonstates slow, steady stride, no LOB and was very pleasant this morning. Patient able to take several backward steps, however very cautious prior to returning to activity room chair at table awaiting breakfast. Patient remained under [facility] staff Supervision and will continue per POC as tolerated. Total treatment time 16 minutes. Carrillo De, PICKLING DRUM OPERATOR
--- NOTE | 2019-08-27 07:30 | NUR ---
OT NOTE Pt was seen this A.M. 1:1 for 15 minute OT session with VETERINARY SURGEON and nursing staff present for observation only. Upon arrival pt was sitting upright in the quiet room. Pt identified by name and and had no complaints at this time. Sit to stand completed from chair level with SBA followed by functional mobility into the bathroom with SBA. There he transferred on/off standard commode with SBA and use of grab bar for UE support. Pt then stood sink side while washing his hands and face with SBA. Functional mobility was then completed to the dining room where he was left sitting upright under [facility] staff supervision. Continue with rec D/C plan to SNF. ALLISON Vargas/Delisa
--- NOTE | 2019-08-27 08:15 | NUR ---
Treatment Plan meeting was held with Dr. Cruz, RN, AT, [facility] and Electric Serviceman in attendance. Plan for discharge Friday/Friday with Pt. to discharge to [facility] at [facility] for SNF.
[2019-08-27 08:32] VITALS: BP 127/68
--- NOTE | 2019-08-27 11:43 | NUR ---
AM GROUP/EXERCISE AND BRAIN GAMES PT IS UNABLE TO PARTICIPATE IN GROUP THERAPY AT THIS TIME DUE TO COGNITIVE IMPAIRMENT. PT WAS IN AND OUT OF THE DAYROOM BUT EXHIBITED NO EXIT SEEKING BEHAVIORS.
--- NOTE | 2019-08-27 14:42 | NUR ---
PHYSICAL THERAPY CO-SIGN I approve of the Physical Therapy notes written above. Susan Plaza PT
--- NOTE | 2019-08-27 15:42 | NUR ---
PM GROUP/LEISURE INTERESTS PT IS UNABLE TO ATTEND OR PARTICIPATE IN GROUP THERAPY AT THIS TIME DUE TO COGNITIVE IMPAIRMENT. PT WANDERS IN AND OUT OF THE DAYROOM.
--- NOTE | 2019-08-27 18:35 | NUR ---
Patient resting quietly with no c/o discomfort. Respirations easy and regular. Vital signs stable. No overt distress. GIVENS,NADIA
--- NOTE | 2019-08-27 18:37 | NUR ---
DR BROWN ON UNIT TO ASSESS PT
[2019-08-27 19:47] VITALS: BP 125/62
--- NOTE | 2019-08-28 05:32 | NUR ---
P-CONFUSED, IRRITABLE, ARGUMENTATIVE WITH STAFF. I-REORIENTED TO REALITY WITH REDIRECTION. PROVIDED 1:1 WITH SUPPORT. PROVIDED DIVERSION TECHNIQUES. PROVIDED LOW STIMULI ENVIRONMENT TO HELP CALM. ENCOURAGED MEDICATION COMPLIANCE. R- NON-PHARMACOLOGICAL INTERVENTIONS INEFFECTIVE, ALERT TO SELF, CONFUSED. PT IRRITABILE WITH REDIRECTION, ARGUMENTATIVE, STATED "BULLSHIT" ON MULTIPLE OCCASIONS WHEN THIS RN ATTEMPTED TO PRESENT REALITY. PT INTRUSIVE, REQUIRES FREQUENT REDIRECTION TO NOT GET INTO FACE OF STAFF MEMBERS. UNRECEPTIVE TO EDUCATION ON PERSONAL SPACE. PT RECEIVED PRN VISTARIL 50MG PO ORDERED BY PHYSICIAN AT 2113 FOR INCREASED AGITATION/IRRITABILITY. MEDICATION COMPLIANT THIS SHIFT WITHOUT DIFFICULTY. VOICES NO SI/HI, HALLUCINATIONS, OR PAIN. NO SIGNS OR SYMPTOMS OF DISTRESS NOTED. PRN EFFECTIVE THIS SHIFT. P-CONTINUE TO MONITOR FOR ESCALATING BEHAVIORS. PROVIDE 1:1 WITH SUPPORT. PROVIDE REORIENTATION. REDIRECT APPROPRIATE. ENCOURAGE MEDICATION COMPLIANCE. MAINTAIN Q 15 MIN CHECKS.
[2019-08-28 08:00] VITALS: BP 137/66
--- NOTE | 2019-08-28 08:00 | NUR ---
Patient eating breakfast quietly with no c/o discomfort. Respirations easy and regular. Vital signs stable. No overt distress. JENNIFER CARRASQUILLO
--- NOTE | 2019-08-28 08:53 | NUR ---
PT IS CONFUSED. S/T MEMORY DEFIICTS APPARENT. PT PREOCCUPIED AT THIS TIME WITH FINDING THE "FOLDERS". PT ASSESSED FOR ORIENTATION LEVEL, MOOD, AND AFFECT. REORIENTED AND REDIRECTED. PT IS ORIENTED TO PERSON ONLY. PT MOOD IS SOMEWHAT ANXIOUS, PT IS LOOKING TO GET OUT OF HERE AND FIND OUT WHERE THE FOLDERS ARE FILED. PT IS UNRECEPTIVE TO REORIENTATION AT THIS TIME, BUT IS PLEASANT. AFFECT CONGRUENT WITH MOOD. MEDICATION COMPLIANT WITHOUT DIFFICULTY. WILL CONTINUE TO REORIENT AND REDIRECT APPROPRIATE. WILL CONTINUE TO MONTIOR Q15 MIN FOR SAFETY.
--- NOTE | 2019-08-28 12:05 | NUR ---
AM GROUP/EXERCISE/MUSIC/GAMES PT ATTENDED ON AND OFF DUE TO BEING PREOCCUPIED WITH "WORKING" PT LOOKING FOR A FOLDER TO DO WORK. THIS STAFF MADE A PRETEND WORK FOLDER PT CARRYING AROUND.PT EXPRESSED NO AGITATION OR AGGRESSION AT THIS TIME AND IWLL CONTIBNUE TO ATTEND AND PARTICIPATE TO BETS OF ABILITY IN FUTURE GROUP SESSIONS.
--- NOTE | 2019-08-28 15:59 | NUR ---
PM GROUP/CARFTS/MUSIC PT WANDERING UNIT AND IN AND OUT OF ACTIVITY ROOM. PT HELPING CLEAN UP CRAFTS THROUGHOUT GROUP. PT REMAINED PLEASANT BUT LOOKING FOR KEYS TO FRONT DOOR. PT EASILY REDIRECTABLE AT THIS TIME AND WILL CONTINUE TO ATTEND AND BE ENCOURAGED TO PARTICIPATE IN GROUP TO BEST OF PT ABILITY.
[2019-08-28 20:04] VITALS: BP 141/77
--- NOTE | 2019-08-29 02:38 | NUR ---
NO ADVERSE BEHAVIORS NOTED. PT ALERT TO SELF, CONFUSED. PT CALM, COOPERATIVE, AND INTERACTIVE. NO AGITATION OR AGGRESSION NOTED. EASILY REDIRECTABLE NEEDED. PATIENT MEDICATION COMPLIANT WITHOUT DIFFICULTY, UNABLE TO EDUCATE DUE TO COGNITION. PT DENIES SI/HI, HALLUCINATIONS, OR PAIN. PT AMBULATORY WITH A STEADY GAIT, ABLE TO MAKE NEEDS KNOWN. NO EXIT SEEKING BEHAVIORS OBSERVED. PT RESTING QUIETLY AT THIS TIME. NO SIGNS OR SYMPTOMS OF DISTRESS NOTED. PLAN IS TO MONITOR MOODS AND BEHAVIORS. PROVIDED 1:1 WITH THERAPEUTIC INTERVENTIONS. ENCOURAGE MEDICATION COMPLIANCE AND EDUCATE. MAINTAIN Q 15 MIN CHECKS.
--- NOTE | 2019-08-29 03:45 | NUR ---
24 HOUR CHART CHECK COMPLETED.
--- NOTE | 2019-08-29 05:37 | NUR ---
PT SLEPT APPROX 5 HOURS WITH X2 AWAKENINGS TO USE THE RESTROOM. PT WALKING HALLWAYS AT THIS TIME. PT OFFERED SHOWER BY STAFF X3. PT CONTINUES TO REFUSE AND IS UNRECEPTIVE TO REDIRECTION OR REALITY PRESENTATION.
--- NOTE | 2019-08-29 07:57 | NUR ---
Patient resting quietly with no c/o discomfort. Respirations easy and regular. Vital signs stable. No overt distress. GIVENS,NADIA
[2019-08-29 08:30] VITALS: BP 131/64
--- NOTE | 2019-08-29 18:52 | NUR ---
ALERT AND ORIENTED X1. STABLE MOOD. INTERACTIVE WITH STAFF AND PEERS. JOKING AND LAUGHING. MEDICATION COMPLIANT. NO HALLUCINATIONS OR DELUSIONS NOTED. DENIES SI/HI. MONITORED ON Q15 MINUTE SAFETY CHECKS. PLEASANTLY CONFUSED. NO IRRITABILITY NOTED.
[2019-08-29 20:00] VITALS: BP 138/61
--- NOTE | 2019-08-29 20:13 | NUR ---
24 HR chart check completed.
--- NOTE | 2019-08-29 22:02 | NUR ---
P-MEMORY DEFICITS I-PROVIDE EMOTIONAL SUPPORT, ASSESS ORIENTATION, REORIENT NEEDED. ADMINISTER MEDS, MONITOR SLEEP, MAINTAIN ELOPEMENT PRECAUTIONS. R-STABLE MOOD. ALERT TO PERSON ONLY. MEMORY DEFICITS PRESENT. STATED HE IS IN [place], YEAR IS 2010 & JUDIE TORIBIO IS THE PRESIDENT WELL WHEN HE WAS REASSED HALF AN HOUR LATER. INDEPENDENTY AMBULATES & IS CONTINENT. DOES NOT REQUIRE REDIRECTION TO HIS ROOM OR DINING ROOM. NO ATTEMPTS TO LEAVE THE UNIT. ALERT TO PERSON ONLY. PLEASANT WITH STAFF. NO IRRITABILITY. ATE SNACK. HS BEDSIDE GLUCOSE 205. COMPLIANT WITH MEDICATIONS. P-CONTINUE TO MONITOR & PROVIDE PHYSICAL & EMOTIONAL SUPPORT NEEDED.
--- NOTE | 2019-08-30 05:38 | NUR ---
PT HAS SLEPT PAST 2099.
--- NOTE | 2019-08-30 06:42 | NUR ---
AM BEDSIDE GLUCOSE 168
--- NOTE | 2019-08-30 06:43 | NUR ---
AM BEDSIDE GLUCOSE 168
--- NOTE | 2019-08-30 07:09 | NUR ---
PHYSICAL THERAPY PT WALKING IN HALLWAY UPON ARRIVAL. PT AGREED TO ALL PHYSICAL THERAPY TREATMENT THIS VISIT. PT HAD NO C/O THIS A.M. PT GAIT TRAINED 30FT X2 WITH SUPERVISION ASSITANCE WITH NO LOB. PT PERFORMED 180 DEGREE AND 360 DEGREE TURN WITH SBA WITH NO LOB AND NO ASSISTANCE. PT PERFORMED BW GAIT 5FT WITH NO LOB AND SBA. PT PERFOREMD SLS ON EACH LEG WITH 5SEC ON LE AND 7SEC ON RE. PT REQUIRED CGA WITH SLS PT WAS UNSTEADY. PT IN ACTIVITY ROOM AWAITING BREAKFAST. COOPER WAS PRESENT FOR OBSERVATION. PT SEEN 1:1 FOR 11MIN. SAAD LEY PTA
--- NOTE | 2019-08-30 07:14 | NUR ---
OT NOTE Pt was seen this A.M. 1:1 for 14 minute OT session with UNEMPLOYMENT INSURANCE HEARING OFFICER and nursing staff present for observation only. Upon arrival pt was sitting upright on the EOB. Pt identified by name and and had no complaints at this time. Sit to stand completed from bed level with CGA for safety. Functional mobility was then completed into the bathroom with SBA. There he stood sink side while washing his hands and face with SBA for safety. Functional mobility was then completed out to the hallway. Challenged pt's dynamic standing tolerance needed for increased I in self care tasks and functional transfers, pt was able to tolerate aprox 10 minutes at a time before sitting due to fatigue. Pt was left sitting upright in the dining room under [facility] staff supervision. Continue with rec D/C plan to SNF. ALLISON Vargas/Delisa
--- NOTE | 2019-08-30 07:33 | NUR ---
ABDIEL DIMAS, GUARDIAN NOTIFIED OF NEW PRESSURES INJURY TO LEFT HEEL
[2019-08-30 08:02] VITALS: BP 130/53
--- NOTE | 2019-08-30 08:15 | NUR ---
Treatment Plan meeting was held with Dr. Cruz, RN, AT, [facility] and Oracle Manufacturing Consultant in attendance. Plan for discharge today. Pt. accepted at [facility] for [facility].
--- NOTE | 2019-08-30 08:29 | NUR ---
FREDRICK FALK [id number] Please refer to the physician's history and physical for past medical history, comorbid conditions, and allergies. Diagnosis: INTERMITTENT EXPLOSIVE DISORDER,PSYCHOTIC DISORDER Robert Score: 21,LOW OR NO RISK WOUND DESCRIPTIONS: Wound Number: 1 Location of the wound: left lateral foot Type of wound: unstageable Thickness: Full Size: 1.7cm x 1.4cm x <0.1cm Tunneling: none Undermining: none Sinus Tract: none Presence of Exudate: none Amount: None Color: Brown Odor: None Periwound Skin Appearance: Normal Wound edges: approximated Pain (associated with wound): none at time of assessment How does patient state this happened? pt unable to state how this happened Wound Number: 2 Location of the wound: left heel Type of wound: deep tissue pressure injury Size: 1.1cm x 2.3cm x <0.1cm Tunneling: none Undermining: none Sinus Tract: none Presence of Exudate: none Amount: None Color: dark red, purple Odor: None Periwound Skin Appearance: Normal Wound edges: closed Pain (associated with wound): none at time of assessment How does patient state this happened? pt unable to state how this happened Surface the patient is resting on: Proform SKIN PREVENTION RECOMMENDATION: 1. Pressure redistribution support surface as appropriate 2. Elevate heels 3. Remove boots/TEDS every shift and reapply 4. Head of bed 30 degrees as tolerated 5. Assess nutrition and hydration 6. Manage moisture 7. Avoid the use of containment devices while in bed 8. Use absorptive products on surfaces limit layers of linens on bed 9. Turn and reposition every 1-2 hours in bed and every 1 hour in chair as tolerated 10. Weight shifts every 15 minutes while up in chair 11. Offloading with pillows or device to keep heels elevated off bed 12. Monitor skin at least every shift 13. Inspect under medical devices twice a day WOUND TREATMENT RECOMMENDATIONS: Apply sureprep to left heel and cover with optifoam gentle daily and prn for soiling. Continue heel raiser pro boot while in bed. Continue dressing change: apply betadine to left lateral foot and cover with dsd daily and prn for soiling.
--- NOTE | 2019-08-30 08:36 | NUR ---
Dr. Rahman stated to put wound care recommendations in the hospitalist office for Dr. Bustamante.
[2019-08-30] MEDS ORDERED: TRAD5TAB1 PO (09:30)
[2019-08-30] MEDS ORDERED: LANTUS SOL100 UNIT/1 SC (09:30)
[2019-08-30] MEDS ORDERED: HUMALOG100 UNIT/2 SQ (09:30)
[2019-08-30] MEDS ORDERED: VITAMIN D5000 UNI1 PO (09:30)
--- NOTE | 2019-08-30 09:32 | NUR ---
Left Message for Phyllis Lion Deputy County Clerk at [facility] to notify of Discharge plans today. Call placed to legal Guardian to notify of discharge. Guardian would like Discharge Paperwork Faxed to [phone].
[2019-08-30] MEDS ORDERED: CLONAZEPAM0.5 M2 PO (09:57)
[2019-08-30] MEDS ORDERED: HYDROXYZINE PAM25 M1 PO (09:57)
[2019-08-30] MEDS ORDERED: MEMANTINE HCL10 MG PO (09:57)
[2019-08-30] MEDS ORDERED: EXELON13.3 MG/21 T (09:57)
[2019-08-30] MEDS ORDERED: PALIPERIDONE ER6 MG PO (09:57)
--- NOTE | 2019-08-30 11:08 | NUR ---
PT ALERT TO PERSON ONLY, CONFUSION AND SHORT TERM MEMORY DEFICITS NOTED PER PT BASLINE. PT CALM, MOOD IS STABLE. PT RESTLESS AND PACING AT TIMES, EASILY REDIRECTED. PT GOAL DIRECTED TOWARDS DISCHARGE. NO HALLUCINATIONS OR DELUSIONS NOTED. PT DENIES ANY SUICIDAL THOUGHTS. PT AMBULATORY THROUGHOUT UNIT, GAIT STEADY. PT CONTINENT OF BOWEL AND BLADDER. PT HAS DEEP TISSUE INJURIES TO LEFT LATERAL FOOT AND LEFT LATERAL HEEL. NO OTHER SKIN ISSUES NOTED AT THIS TIME. PT MED COMPLIANT WITHOUT DIFFICULTY. PLAN IS TO MONITOR PT BEHAVIORS ON Q15 MIN SAFETY CHECKS, ENCOURAGE MED COMPLIANCE, AND PREPARE FOR DISCAHRGE.
--- NOTE | 2019-08-30 11:48 | NUR ---
AM GROUP/EXERCISE AND CURRENT EVENTS PT DID NOT PARTICIPATE IN MORNING GROUP THERAPY AND WAS IN AND OUT OF THE DAYROOM. PT WAS PLEASANT AND EXHIBITED NO AGITATION. PT IS SET TO BE DISCHARGED FROM THE UNIT THIS AFTERNOON
--- NOTE | 2019-08-30 12:54 | NUR ---
Patient is calm and cooperative this AM. Patient is discharging today to [facility] at [facility] for skilled level of care. Follow-up will be with Dr Cruz, visiting psychiatrist. While at [facility], pt's anxiety lessened. He became less argumentative. Pt did not participate in programming and spoke very little to other patients.
--- NOTE | 2019-08-30 12:54 | NUR ---
PT DISCHARGED TO [facility] VIA [facility], ESCORTED OFF UNIT BY SECURITY. NURSE TO NURSE REPORT GIVEN TO DERRICK AT [facility].
--- NOTE | 2019-08-30 13:04 | NUR ---
Discharge Paperwork Faxed to [facility] at .
--- NOTE | 2019-08-31 07:37 | NUR ---
OCCUPATIONAL THERAPY CO-SIGN I approve of the Occupational Therapy notes written above. ROSS ROE OTR/Delisa
--- NOTE | 2019-08-31 15:45 | NUR ---
PHYSICAL THERAPY CO-SIGN I approve of the Physical Therapy notes written above. Susan Plaza PT
--- NOTE | 2019-09-02 07:43 | NUR ---
Please refer to psychosocial assessment dated 08/10/19 for patient.
== END 2019-08-30 12:54 | DRG 883 ==
LOC: 3N 17:45
PROVIDERS: Internal Medicine; ADMIT Psychiatry & Neurology Psychiatry
DX: F63.81 Intermittent explosive disorder (principal); F23 Brief psychotic disorder; F02.81 Dementia in other diseases classified elsewhere, unspecified severity, with behavioral disturbance; E11.65 Type 2 diabetes mellitus with hyperglycemia; F10.10 Alcohol abuse, uncomplicated; G30.9 Alzheimer's disease, unspecified; I10 Essential (primary) hypertension; E78.5 Hyperlipidemia, unspecified; E11.621 Type 2 diabetes mellitus with foot ulcer; L97.529 Non-pressure chronic ulcer of other part of left foot with unspecified severity; R74.0 Nonspecific elevation of levels of transaminase and lactic acid dehydrogenase [LDH]; D53.9 Nutritional anemia, unspecified; E78.1 Pure hyperglyceridemia; E55.9 Vitamin D deficiency, unspecified; Z86.73 Personal history of transient ischemic attack (TIA), and cerebral infarction without residual deficits; Z95.1 Presence of aortocoronary bypass graft; Z87.891 Personal history of nicotine dependence; Z82.49 Family history of ischemic heart disease and other diseases of the circulatory system; Z79.899 Other long term (current) drug therapy

== ENCOUNTER 2019-09-01 16:26 | Inpatient (IN) | payer MEDICARE ==
[~2019-09-01] VITALS: Ht 180.3 cm; Wt 86.2 kg
[~2019-09-01 16:26] MED LIST: CLONAZEPAM0.5 M2 PO; EXELON1 EACH T; EXELON13.3 MG/21 T; GLUCOPHAGE1000 MG PO; HALOPERIDOL0.5 MG PO; HUMALOG100 UNIT/2 SQ; HYDROXYZINE PAM25 M1 PO; LANTUS SOL100 UNIT/1 SC; LIPITOR10 MG PO; MEMANTINE HCL10 MG PO; NATURE'S BLEND F1 MG PO; NATURE'S BLEND100 M2 PO; NEURONTIN300 MG PO; PALIPERIDONE ER6 MG PO; PAXIL20 M1 PO; PRINIVIL10 MG PO; TRAD5TAB1 PO; TRAZODONE50 MG PO; VITAMIN D5000 UNI1 PO; ZYPREXA20 M1 PO
[2019-09-01] MEDS ORDERED: KLONOPIN0.5 MG PO (16:28)
[2019-09-01] MEDS ORDERED: INVEGA6 MG PO (16:31)
[2019-09-01 19:26] VITALS: BP 142/65
[2019-09-01 22:50] LABS: BILIRUBIN NEGATIVE (NEGATIVE); BLOOD NEGATIVE (NEGATIVE); CLARITY CLEAR (CLEAR); COLOR YELLOW (YELLOW); GLUCOSE TRACE (NEGATIVE); KETONE NEGATIVE (NEGATIVE); LEUKO ESTERASE NEGATIVE (NEGATIVE); NITRITE NEGATIVE (NEGATIVE)
[2019-09-01 22:59] LABS: WBC 0-2 wbc/hpf (0-5)
[2019-09-02 07:04] LABS: BASO % 0.5 % (0.0-1.0); EOS # 0.2 10*3/uL (0.0-0.4); HEMATOCRIT 34.3 % (42.0-52.0); HEMOGLOBIN 12.1 g/dl (14.0-18.0); LYMPH # 1.1 10*3/uL (1.3-4.4); LYMPH % 13.7 % (27.0-41.0); MEAN CELL VOLUME 95.8 fl (80.0-94.0); MEAN CORPUSCULAR HGB 33.8 pg (27.0-31.0); MEAN CORPUSCULAR HGB CONC 35.3 g/dl (33.0-37.0); MONO # 0.8 10*3/uL (0.1-1.0); MONO % 10.2 % (3.0-9.0); NEUT # 5.7 10*3/uL (2.3-7.9); NEUT % 73.2 % (47.0-73.0); PLATELET COUNT AUTOMATED 137 10*3/uL (130-400); RED BLOOD COUNT 3.58 10*6/uL (4.50-5.90); WHITE BLOOD COUNT 7.8 10*3/uL (4.8-10.8)
[2019-09-02 07:23] LABS: ALBUMIN 3.6 gm/dl (3.1-4.5); ALKALINE PHOSPHATASE 54 U/L (45-117); BUN 10 mg/dl (7-24); CHLORIDE 105 mmol/L (98-107); CHOLESTEROL 136 mg/dL (<200); CREATININE 0.79 mg/dL (0.70-1.30); HDL CHOLESTEROL 33 mg/dl (40-60); LDL CHOLESTEROL 79 mg/dL (9-159); POTASSIUM 3.7 mmol/L (3.5-5.1); SGOT/AST 14 IU/L (3-35); SGPT/ALT 15 U/L (12-78); SODIUM 140 mmol/L (136-145); TRIGLYCERIDES 121 mg/dl (<150); VLDL CHOLESTEROL 24 mg/dL (6-40)
[2019-09-02 07:29] LABS: TOTAL PROTEIN 6.6 gm/dL (6.4-8.2)
[2019-09-02 08:00] VITALS: BP 132/79
[2019-09-02 08:15] LABS: VITAMIN D, 25-HYDROXY 36.6 ng/mL (30-100)
[2019-09-02 19:43] VITALS: BP 114/75
[2019-09-03 08:41] VITALS: BP 114/66
[2019-09-03 19:58] VITALS: BP 120/64
[2019-09-04 07:59] VITALS: BP 112/63
[2019-09-04 08:53] VITALS: BP 100/62
[2019-09-04 19:52] VITALS: BP 128/77
[2019-09-05 07:29] VITALS: BP 126/64
[2019-09-05 19:58] VITALS: BP 102/60
[2019-09-06 07:54] VITALS: BP 119/61
[2019-09-06 19:50] VITALS: BP 120/68
[2019-09-07 07:46] VITALS: BP 117/63
[2019-09-07 20:01] VITALS: BP 119/64
[2019-09-08 07:35] VITALS: BP 119/69
[2019-09-08 19:28] VITALS: BP 128/81
[2019-09-09 07:27] VITALS: BP 120/68
[2019-09-09 19:31] VITALS: BP 118/73
[2019-09-10 07:31] VITALS: BP 132/75
[2019-09-10 19:29] VITALS: BP 111/65
[2019-09-11 07:23] VITALS: BP 114/70
[2019-09-11 19:49] VITALS: BP 111/68
[2019-09-12 07:36] VITALS: BP 128/70
[2019-09-12 19:34] VITALS: BP 126/64
[2019-09-13 07:14] VITALS: BP 127/75
[2019-09-13 19:42] VITALS: BP 124/68
[2019-09-14 07:37] VITALS: BP 105/68
[2019-09-14 19:51] VITALS: BP 106/73
[2019-09-15 07:25] VITALS: BP 113/62
[2019-09-15 19:37] VITALS: BP 115/60
[2019-09-16 07:32] VITALS: BP 121/77
[2019-09-16] MEDS ORDERED: DIVALPROEX SOD500 MG PO (08:56)
[2019-09-16] MEDS ORDERED: EXELON13.3 MG/21 T (08:56)
[2019-09-16] MEDS ORDERED: DIAZEPAM5 MG PO (08:56)
[2019-09-16] MEDS ORDERED: VITAMIN D5000 UNI1 PO (08:56)
[2019-09-16] MEDS ORDERED: ATARAX,VISTARIL50 MG PO (08:56)
[2019-09-16] MEDS ORDERED: MEMANTINE HCL10 MG PO (08:56)
[2019-09-16] MEDS ORDERED: PALIPERIDONE ER6 MG PO (08:56)
[2019-09-16 19:31] VITALS: BP 125/77
[2019-09-17 07:32] VITALS: BP 118/68
[2019-09-17 19:51] VITALS: BP 111/67
[2019-09-18 07:32] VITALS: BP 120/71
== END 2019-09-18 15:20 | disposition home or self-care (01) | DRG 883 ==
LOC: 3N 16:26
PROVIDERS: ADMIT Psychiatry & Neurology Psychiatry
DX: F63.81 Intermittent explosive disorder (principal); F23 Brief psychotic disorder; F02.81 Dementia in other diseases classified elsewhere, unspecified severity, with behavioral disturbance; G30.9 Alzheimer's disease, unspecified; I10 Essential (primary) hypertension; E78.5 Hyperlipidemia, unspecified; F10.10 Alcohol abuse, uncomplicated; D53.9 Nutritional anemia, unspecified; E78.1 Pure hyperglyceridemia; E55.9 Vitamin D deficiency, unspecified; E11.65 Type 2 diabetes mellitus with hyperglycemia; Z79.4 Long term (current) use of insulin; Z86.73 Personal history of transient ischemic attack (TIA), and cerebral infarction without residual deficits; Z87.891 Personal history of nicotine dependence; Z95.1 Presence of aortocoronary bypass graft; Z82.49 Family history of ischemic heart disease and other diseases of the circulatory system; Z79.899 Other long term (current) drug therapy